=== PATIENT | male | born 1945 | race Caucasian/White ===

== ENCOUNTER 2016-03-22 09:21 | Outpatient (CLI) | payer MEDICARE, OTHER ==
[~2016-03-22 09:21] MED LIST: EMPA1TAB PO; EXEN2PEN SQ; FURO80TA3 PO; ICOS1CAP PO; INSU100V11 SQ; INSU3INS6 SQ; LIOT25TA9 PO; LISI-607 PO; NALT1TAB PO; PREG100C PO; SIMV40TA5 PO
== END 2016-03-22 23:59 | disposition home health service (06) ==
LOC: WOU 09:21
PROVIDERS: ATTEND Podiatrist Foot & Ankle Surgery
DX: E11.621 Type 2 diabetes mellitus with foot ulcer (principal); L97.512 Non-pressure chronic ulcer of other part of right foot with fat layer exposed; E11.42 Type 2 diabetes mellitus with diabetic polyneuropathy; E11.610 Type 2 diabetes mellitus with diabetic neuropathic arthropathy; Z91.19 Patient's noncompliance with other medical treatment and regimen; R60.0 Localized edema; Z79.4 Long term (current) use of insulin; Z79.899 Other long term (current) drug therapy
CPT/HCPCS: 15275; A6253; A6402; Q4110

== ENCOUNTER 2016-04-05 10:18 | Outpatient (CLI) | payer MEDICARE, OTHER | END 2016-04-05 23:59 | disposition home health service (06) | LOC: WOU 10:18 | PROVIDERS: ATTEND Podiatrist Foot & Ankle Surgery | DX: E11.621 Type 2 diabetes mellitus with foot ulcer (principal); L97.512 Non-pressure chronic ulcer of other part of right foot with fat layer exposed; E11.42 Type 2 diabetes mellitus with diabetic polyneuropathy; E11.610 Type 2 diabetes mellitus with diabetic neuropathic arthropathy; R60.0 Localized edema; Z79.4 Long term (current) use of insulin | CPT/HCPCS: 15275; A6253; A6402; Q4110 ==

== ENCOUNTER 2016-04-19 10:22 | Outpatient (CLI) | payer MEDICARE, OTHER | END 2016-04-19 23:59 | disposition home health service (06) | LOC: WOU 10:22 | PROVIDERS: ATTEND Podiatrist Foot & Ankle Surgery | DX: E11.621 Type 2 diabetes mellitus with foot ulcer (principal); L97.512 Non-pressure chronic ulcer of other part of right foot with fat layer exposed; E11.42 Type 2 diabetes mellitus with diabetic polyneuropathy; E11.610 Type 2 diabetes mellitus with diabetic neuropathic arthropathy; R60.0 Localized edema; Z79.4 Long term (current) use of insulin; Z79.899 Other long term (current) drug therapy | CPT/HCPCS: 15275; A6253; A6402; Q4110 ==

== ENCOUNTER 2016-05-03 10:20 | Outpatient (CLI) | payer MEDICARE, OTHER | END 2016-05-03 23:59 | disposition home health service (06) | LOC: WOU 10:20 | PROVIDERS: ATTEND Podiatrist Foot & Ankle Surgery | DX: E11.621 Type 2 diabetes mellitus with foot ulcer (principal); L97.512 Non-pressure chronic ulcer of other part of right foot with fat layer exposed; E11.42 Type 2 diabetes mellitus with diabetic polyneuropathy; E11.610 Type 2 diabetes mellitus with diabetic neuropathic arthropathy | CPT/HCPCS: 15275; A6253; A6402 ×2; Q4110 ==

== ENCOUNTER 2016-05-24 10:46 | Outpatient (CLI) | payer MEDICARE, OTHER | END 2016-05-24 23:59 | disposition home health service (06) | LOC: WOU 10:46 | PROVIDERS: ATTEND Podiatrist Foot & Ankle Surgery | DX: E11.621 Type 2 diabetes mellitus with foot ulcer (principal); L97.512 Non-pressure chronic ulcer of other part of right foot with fat layer exposed; E11.42 Type 2 diabetes mellitus with diabetic polyneuropathy; E11.610 Type 2 diabetes mellitus with diabetic neuropathic arthropathy; R60.0 Localized edema; E66.9 Obesity, unspecified; Z68.36 Body mass index [BMI] 36.0-36.9, adult; Z79.4 Long term (current) use of insulin; Z79.899 Other long term (current) drug therapy | CPT/HCPCS: 15275; A6253; A6402 ==

== ENCOUNTER 2016-05-28 13:10 | Outpatient (CLI) | payer MEDICARE, OTHER | END 2016-05-28 23:59 | disposition home health service (06) | LOC: WOU 13:10 | PROVIDERS: ATTEND Podiatrist Foot & Ankle Surgery | PROC: 0S9N3ZZ Drainage of Left Metatarsal-Phalangeal Joint, Percutaneous Approach (ICD-10-PCS; principal; 2016-05-28) | DX: M71.372 Other bursal cyst, left ankle and foot (principal); R60.0 Localized edema; E11.610 Type 2 diabetes mellitus with diabetic neuropathic arthropathy; E66.9 Obesity, unspecified; Z68.36 Body mass index [BMI] 36.0-36.9, adult; E11.42 Type 2 diabetes mellitus with diabetic polyneuropathy; Z79.4 Long term (current) use of insulin | CPT/HCPCS: 20600; A6402; J3490 ==

== ENCOUNTER 2016-06-07 10:26 | Outpatient (CLI) | payer MEDICARE, OTHER | END 2016-06-07 23:59 | disposition home health service (06) | LOC: WOU 10:26 | PROVIDERS: ATTEND Podiatrist Foot & Ankle Surgery | DX: E11.621 Type 2 diabetes mellitus with foot ulcer (principal); L97.512 Non-pressure chronic ulcer of other part of right foot with fat layer exposed; E11.42 Type 2 diabetes mellitus with diabetic polyneuropathy; E11.610 Type 2 diabetes mellitus with diabetic neuropathic arthropathy; E66.9 Obesity, unspecified; Z68.36 Body mass index [BMI] 36.0-36.9, adult; Z91.19 Patient's noncompliance with other medical treatment and regimen; R60.0 Localized edema; Z79.4 Long term (current) use of insulin | CPT/HCPCS: 15275; A6253; A6402; Q4110 ==

== ENCOUNTER 2016-06-21 10:25 | Outpatient (CLI) | payer MEDICARE, OTHER | END 2016-06-21 23:59 | disposition home health service (06) | LOC: WOU 10:25 | PROVIDERS: ATTEND Podiatrist Foot & Ankle Surgery | DX: E11.621 Type 2 diabetes mellitus with foot ulcer (principal); L97.512 Non-pressure chronic ulcer of other part of right foot with fat layer exposed; E11.42 Type 2 diabetes mellitus with diabetic polyneuropathy; R60.0 Localized edema; E11.610 Type 2 diabetes mellitus with diabetic neuropathic arthropathy; Z79.4 Long term (current) use of insulin | CPT/HCPCS: 15275; A6253; A6402; Q4131 ==

== ENCOUNTER 2016-08-04 10:51 | Emergency (ER) | payer MEDICARE, OTHER ==
[~2016-08-04] VITALS: Ht 180.3 cm; Wt 111.1 kg
--- NOTE | 2016-08-04 10:55 | NUR ---
PT SENT TO ED FOR PICC LINE PLACEMENT . AMBULATORY. ALERT ORIENTED. VSS. AWAITING MD ORDER
[2016-08-04] MEDS ORDERED: VANCOMYCIN 1 GM in IV D5W 250 ML IV ONE (11:30)
--- NOTE | 2016-08-04 11:38 | NUR ---
DARA VEE AT BEDSIDE FOR PICC LINE REINSERTION
--- NOTE | 2016-08-04 11:45 | NUR ---
CALLED PHARMACY FOR VANCOMYCIN
[2016-08-04] MEDS ORDERED: IV SET PRIMARY PUMP SET 1 EA INFUS.SET MC ONE (12:08)
[2016-08-04 12:54] VITALS: BP 122/75
--- NOTE | 2016-08-04 13:10 | NUR ---
Patient discharged to home in stable condition. Written and verbal after care instructions given. Patient verbalizes understanding of instruction.
== END 2016-08-04 13:20 | disposition home or self-care (01) ==
LOC: ER 10:54
DX: E11.621 Type 2 diabetes mellitus with foot ulcer (principal); E66.9 Obesity, unspecified; F41.9 Anxiety disorder, unspecified; I10 Essential (primary) hypertension; G62.9 Polyneuropathy, unspecified; F32.9 Major depressive disorder, single episode, unspecified; J44.9 Chronic obstructive pulmonary disease, unspecified; Z45.2 Encounter for adjustment and management of vascular access device; Z79.4 Long term (current) use of insulin
CPT/HCPCS: 36569; 96365; 99285; A4606; C1751; J3370; J7060; Z7610

== ENCOUNTER 2017-06-16 04:29 | Inpatient (IN) | payer MEDICARE, OTHER ==
[~2017-06-16] VITALS: Ht 177.8 cm; Wt 108.9 kg
--- NOTE | 2017-06-16 04:40 | NUR ---
TO BED 11 A 72 YO MALE PATIENT BIBRA 881 FROM HOME C/O LEFT LEG PAIN S/P FALLING OUT OF BED AT MIDNIGHT. DISTAL CMS INTACT. VSS. NAD NOTED. NONDIAPHORETIC. COMFORT MEASURES RENDERED.
--- NOTE | 2017-06-16 04:45 | NUR ---
XR AT BEDSIDE.
[2017-06-16] MEDS ORDERED: IBUPROFEN 400 MG TABLET PO ONE (05:00)
[2017-06-16] MEDS ORDERED: IBUPROFEN 400 MG TABLET ONE (05:04)
--- NOTE | 2017-06-16 05:43 | NUR ---
MS BED 225.2
--- NOTE | 2017-06-16 06:08 | NUR ---
PATIENT TO CT.
--- NOTE | 2017-06-16 06:26 | NUR ---
TRANSFERRED PATIENT TO MS BED, NO INCIDENT NOTED.
[2017-06-16 06:35] VITALS: BP 111/59
--- NOTE | 2017-06-16 06:35 | NUR ---
RN NOTES PATIENT BROUGHT INTO THE UNIT VIA RNEY, ACCOMPANIED BY ER STAFF. SAFELY TRANSFERRED PATIENT FROM [place]. PATIENT IS ALERT AND ORIENTED X 4, WITH NO SOB, BREATHING EVEN AND UNLABORED, IN NO ACUTE DISTRESS, WITH NO C/O PAIN AT THIS TIME. ORIENTED PT TO ROOM, UNIT, ADMISSION PROCESS, CALL LIGHT AND USE OF CALL LIGHT, PATIENT VERBALIZED UNDERSTANDING WITH FAMILY AT BEDSIDE. ALL PATIENT'S NEEDS ATTENDED TO AT THIS TIME. INITIAL VITAL SIGNS STABLE. STOCK ROLLER AT BEDSIDE FOR BLOOD DRAW OF AM LABS. WILL ENDORSE TO AM SHIFT NURSE FOR CONTINUITY OF CARE.
[2017-06-16 07:10] VITALS: BP 111/59
--- NOTE | 2017-06-16 07:15 | NUR ---
RN OPENING NOTES PATIENT IN BED EYES CLOSED, RESPONSIVE TO VERBAL AND TACTILE STIMULI. FAMILY AT BEDSIDE. NO ACUTE DISTRESS NOTED.BREATHING UNLABORED. IV ACCESS PATENT AND INTACT, NO REDNESS OR SWELLING NOTED. SAFETY MEASURES IN PLACE. CALL LIGHT WITHIN REACH. WILL CONTINUE TO MONITOR ACCORDINGLY.
[2017-06-16 07:21] LABS: BASOPHILS # (AUTO) 0.1 /CMM (0.0-0.2); BASOPHILS % (AUTO) 0.5 % (0.0-2.0); EOSINOPHILS % (AUTO) 0.1 % (0.0-6.0); HEMATOCRIT 48 % (39-51); HEMOGLOBIN 15.8 g/dL (13.5-17.5); LYMPHOCYTES # (AUTO) 1.5 /CMM (0.8-4.8); LYMPHOCYTES % (AUTO) 8.1 % (20.0-44.0); MEAN CORPUSCULAR HGB CONC 33 g/dl (31.0-36.0); MEAN CORPUSCULAR VOLUME 81 fL (80-96); MONOCYTES # (AUTO) 2.2 /CMM (0.1-1.30); MONOCYTES % (AUTO) 11.5 % (2.0-12.0); NEUTROPHILS # (AUTO) 14.9 /CMM (1.8-8.9); NEUTROPHILS % (AUTO) 79.8 % (43.0-81.0); PLATELET COUNT (AUTO) 193 /CMM (150-450); RDW COEFFICIENT OF VARIATION 16.9 (11.5-15.0); RED BLOOD CELL COUNT(AUTO) 5.97 MIL/uL (4.5-6.0); WHITE BLOOD COUNT (AUTO) 18.7 K/uL (4.3-11.0)
[2017-06-16 07:39] LABS: CREATININE 1.9 mg/dL (0.6-1.3)
[2017-06-16 07:41] LABS: INR 1.16 (0.87-1.13)
[2017-06-16] MEDS ORDERED: ONDANSETRON HCL/PF 4 MG/2 ML VIAL IVP PRN (10:00)
[2017-06-16] MEDS ORDERED: MORPHINE SULFATE INJ 2 MG/ML DISP.SYRIN IV PRN (10:00)
[2017-06-16] MEDS ORDERED: Z GUARD REMEDY 2 OZ OINT TP PRN (10:00)
[2017-06-16] MEDS: PREGABALIN 100 MG CAPSULE PO SCH ×2 (12:40→16:51)
--- NOTE | 2017-06-16 17:00 | NUR ---
RN NOTES PATIENT REFUSED ECHO DONE DESPITE OF EXPLANATION OF RISK AND BENEFITS. DR BURNETT MADE AWARE.
[2017-06-16] MEDS ORDERED: *INSULIN REGULAR(HUMULIN R)HUM 100 UNIT/ML VIAL SQ PRN (18:00)
[2017-06-16] MEDS ORDERED: BLOOD SUGAR DIAGNOSTIC 1 EACH STRIP VI SCH (18:00)
[2017-06-16] MEDS ORDERED: MORPHINE SULFATE INJ 4 MG/ML DISP.SYRIN IV PRN (18:00)
[2017-06-16] MEDS ORDERED: PIPERACILLIN /TAZOBACTAM 3.375 G in IV D5W 100 ML IV SCH (18:00)
[2017-06-16] MEDS ORDERED: INSULIN REGULAR, HUMAN 100 UNIT/ML 3 ML VIAL SQ PRN (18:00)
[2017-06-16] MEDS ORDERED: hydrALAZINE HCL 25 MG TABLET PO PRN (18:00)
[2017-06-16] MEDS ORDERED: DEXTROSE 50%-WATER 50 ML DISP.SYRIN IV PRN ×2 (18:00→21:00)
[2017-06-16] MEDS ORDERED: FEE PK DOSING 1 MIN EA MC ONE (18:08)
[2017-06-16] MEDS: PIPERACILLIN /TAZOBACTAM 3.375 G in IV D5W 100 ML IV SCH (18:30)
[2017-06-16] MEDS ORDERED: INSULIN GLARGINE, 100 UNIT/ML CARTRIDGE SQ ONE ×2 (18:30→21:00)
--- NOTE | 2017-06-16 18:30 | NUR ---
RN NOTES NOTED BLOOD SUGAR [address] BURNETT WITH ORDERS TO GIVE REGULAR INSULIN COVERAGE AND LANTUS 15 UNITS NOW AND CHANGE ACCU CHECK EVERY 4 HOUR. CLARIFIED LANTUS DUE @ BEDTIME TONIGHT SAID TO CUT LANTUS DOWN TO 12 UNITS.PATIENT ASYMPTOMIC. NOTED AND CARRIED OUT. PATIENT REFUSED ZOSYN DESPITE OF EXPLANATION OF RISK AND BENEFITS AND PATIENT STATED " I DON'T CARE ABOUT MY INFECTION" PATIENT GETS UPSET AND REFUSED TO TALK ABOUT THAT. MD NOTIFIED.
--- NOTE | 2017-06-16 19:10 | NUR ---
RN NOTED RECHECKED BLOOD SUGAR NOTED WITH IMPROVEMENT , DECREASING . ENDORSED TO NIGHT NURSE FOR CONTINUITY OF CARE. NO ACUTE DISTRESS NOTED. PATIENT ALERT ORIENTED X4. SAFETY MEASURES IN PLACE. CALL LIGHT WITHIN REACH. DUE MEDICATIONS GIVEN, NO ASE NOTED.
--- NOTE | 2017-06-16 19:30 | NUR ---
RN OPENING MS NOTES RECEIVED PATIENT IN BED, AWAKE, ALERT AND ORIENTED X 4, VERBALLY RESPONSIVE, NO SOB, VERBALIZED PAIN LEVEL OF 8/10, ALL NEEDS ATTENDED TO AT THIS TIME, PLACED BED IN LOW POSITION AND LOCKED IN PLACE, CALL LIGHT WITHIN EASY REACH. KEPT PATIENT SAFE AND DRY, CLEAN AND COMFORTABLE. WILL CONTINUE TO MONITOR PATIENT THROUGHOUT THE SHIFT.
[2017-06-16] MEDS ORDERED: VANCOMYCIN 1.25 GM in IV D5W 500 ML IV SCH (20:00)
--- NOTE | 2017-06-16 20:50 | NUR ---
RN NOTE RECEIVED NEW ORDER FROM DR. BURNETT TO D/C PREVIOUS SSI COVERAGE ORDERS AND TO FOLLOW Q4 PRN SSI COVERAGE MODERATE SCALE TOGETHER WITH ACCUCHECK Q4H. ALL ORDERS NOTED AND CARRIED OUT.
[2017-06-16] MEDS ORDERED: BLOOD SUGAR DIAGNOSTIC 1 EACH STRIP IN SCH (21:00)
[2017-06-16] MEDS ORDERED: INSULIN GLARGINE, 100 UNIT/ML CARTRIDGE SQ SCH (21:00)
[2017-06-16] MEDS: INSULIN REGULAR, HUMAN 100 UNIT/ML 3 ML VIAL SQ PRN (21:09)
[2017-06-16] MEDS: BLOOD SUGAR DIAGNOSTIC 1 EACH STRIP VI SCH (21:09)
[2017-06-16] MEDS: SIMVASTATIN 40 MG TABLET PO SCH (21:16)
[2017-06-16] MEDS: HYDROCODONE/APAP 5/325MG 1 EACH TABLET PO PRN (21:51)
[2017-06-16 22:09] LABS: APPEARANCE,URINE CLEAR (CLEAR); BILIRUBIN,URINE NEGATIVE (NEGATIVE); BLOOD, URINE 2+ Ery/uL (NEGATIVE); COLOR,URINE YELLOW (YELLOW); KETONES,URINE NEGATIVE (NEGATIVE); LEUKOCYTE ESTERASE ,URINE NEGATIVE (NEGATIVE); NITRITE, URINE NEGATIVE (NEGATIVE); PH,URINE 6.5 (5.0-8.0); PROTEIN,URINE 1+ mg/dl (NEGATIVE); UGLUCOSE 3+ mg/dL (NEGATIVE); UROBILINOGEN,URINE 0.2 EU/dL (0.2)
[2017-06-16 22:21] LABS: BACTERIA,URINE 1+ /HPF (None Seen); SQUAMOUS EPITHELIAL CELL,UR 0-2 /HPF (None Seen); WBC,URINE 0-2 /HPF (0-3)
[2017-06-16 23:15] LABS: EOSINOPHIL,URINE None Seen
[2017-06-17] MEDS: PIPERACILLIN /TAZOBACTAM 3.375 G in IV D5W 100 ML IV SCH ×5 (00:04→23:24)
[2017-06-17] MEDS: INSULIN REGULAR, HUMAN 100 UNIT/ML 3 ML VIAL SQ PRN ×3 (00:17→09:15)
[2017-06-17] MEDS: BLOOD SUGAR DIAGNOSTIC 1 EACH STRIP VI SCH ×3 (00:18→09:10)
--- NOTE | 2017-06-17 01:30 | NUR ---
RN NOTE PATIENT NOTED TO HAVE TEMP 99.2 F, ACETAMINOPHEN 650 MG PO ADMINISTERED ORDERED, COOLING MEASURES APPLIED. PT ALERT AND ORIENTED AND VERBALLY RESPONSIVE, NO C/O PAIN AND IN NO ACUTE DISTRESS. WILL CONTINUE TO MONITOR PT.
[2017-06-17] MEDS: ACETAMINOPHEN 325 MG TABLET PO PRN (01:32)
--- NOTE | 2017-06-17 03:30 | NUR ---
RN NOTE GAVE REPORT TO TAJ LUJAN FOR TRANSFER OF PATIENT'S CARE. PATIENT IN BED, ASLEEP BUT EASILY AROUSABLE AND IN NO ACUTE DISTRESS.
[2017-06-17] MEDS: HYDROCODONE/APAP 5/325MG 1 EACH TABLET PO PRN ×3 (04:20→17:00)
[2017-06-17 07:20] LABS: BASOPHILS # (AUTO) 0.1 /CMM (0.0-0.2); BASOPHILS % (AUTO) 0.5 % (0.0-2.0); EOSINOPHILS % (AUTO) 0.2 % (0.0-6.0); HEMATOCRIT 49 % (39-51); HEMOGLOBIN 16.2 g/dL (13.5-17.5); LYMPHOCYTES # (AUTO) 1.4 /CMM (0.8-4.8); LYMPHOCYTES % (AUTO) 8.7 % (20.0-44.0); MEAN CORPUSCULAR HGB CONC 33 g/dl (31.0-36.0); MEAN CORPUSCULAR VOLUME 80 fL (80-96); MONOCYTES # (AUTO) 1.1 /CMM (0.1-1.30); MONOCYTES % (AUTO) 6.8 % (2.0-12.0); NEUTROPHILS # (AUTO) 13.8 /CMM (1.8-8.9); NEUTROPHILS % (AUTO) 83.8 % (43.0-81.0); PLATELET COUNT (AUTO) 177 /CMM (150-450); RDW COEFFICIENT OF VARIATION 16.8 (11.5-15.0); RED BLOOD CELL COUNT(AUTO) 6.09 MIL/uL (4.5-6.0); WHITE BLOOD COUNT (AUTO) 16.4 K/uL (4.3-11.0)
[2017-06-17 07:51] LABS: ALBUMIN 2.9 g/dL (3.4-5.0); BILIRUBIN,TOTAL 1.6 mg/dL (0.2-1.0); CALCIUM, SERUM 9.2 mg/dL (8.5-10.1); CREATININE 2.2 mg/dL (0.6-1.3); MAGNESIUM 2.1 mg/dL (1.8-2.4); PHOSPHORUS 3.1 mg/dL (2.5-4.9); POTASSIUM 4.3 mmol/L (3.5-5.1); TOTAL PROTEIN, SERUM 7.9 g/dL (6.4-8.2)
[2017-06-17 07:54] LABS: THYROID STIMULATING HORMONE 1.364 uIU/mL (0.358-3.74)
--- NOTE | 2017-06-17 07:58 | NUR ---
NO SIGNIFICANT CHANGE NOTED, PATIENT STABLE, ALL DUE MEDS GIVEN ORDERED. ENDORSED TO THE NEXT SHIFT TO CONTINUE TO MONITOR
[2017-06-17 08:00] VITALS: BP 125/62
[2017-06-17] MEDS: FUROSEMIDE 80 MG TABLET PO SCH (08:37)
[2017-06-17] MEDS: LIOTHYRONINE SODIUM (25 MCG) 25 MCG TABLET PO SCH (08:37)
[2017-06-17] MEDS: PREGABALIN 100 MG CAPSULE PO SCH ×3 (08:37→17:00)
[2017-06-17 08:46] LABS: CREATINE KINASE MB 1.7 ng/mL (0-3.6)
[2017-06-17] MEDS: INSULIN GLARGINE, 100 UNIT/ML CARTRIDGE SQ SCH ×2 (09:00→21:40)
[2017-06-17] MEDS ORDERED: LISINOPRIL (5MG) 5 MG TABLET PO SCH (09:00)
--- NOTE | 2017-06-17 09:15 | NUR ---
m/s director diabetes: notes blood sugar oezrs=[id number]. pt refused lantus, stated, "i don't want that, i just want my novolog." informed pt that he is on regular insulin with coverage and per coverage 3 units has to be given per coverage, stated, "i need more, i already told them, how many times do i have to tell them, i will call someone to bring my own staff here, i already discuss this to the doctor, it's always malpractice." pt continue to be verbally abusive despite educated on insulin use and policy. 1:1 intervention provided prn.
--- NOTE | 2017-06-17 09:45 | NUR ---
m/s graphic design manager: notes pt wants to walk to the bathroom, refused bsc when offered. educated pt on safety, but insisted of walking to the bathroom. pt more verbally abusive staff when educated provided, stated, "i need a orthopedic to see me as soon as possible." pt unable to walk, but able to stand up, provided wheelchair with 2 person assistance. pt just voided, unable to move his bowel at this time. assisted back to bed, repositioned. informed pt to use urinal for #1. pt insisted on seeing the orthopedic. informed pt that a plumbing installer will be seeing him, but pt refused to listen and insisted on seeing the orthopedic. per dr. castillo (ortho), no need to see him per cn and pt made aware, but still insisted on seeing the orthopedic. informed pt that a primary medical doctor will be here to explain more and update his plan of care today.
[2017-06-17 10:04] LABS: BAND % (MANUAL) 2 % (0.0-5.0); LYMPHOCYTES % (MANUAL) 12 % (16-48); MONOCYTES % (MANUAL) 2 % (0-11.0); NEUTROPHILS % (MANUAL) 84 (42-76)
[2017-06-17] MEDS ORDERED: HYDROCODONE/APAP 5/325MG 1 EACH TABLET PO ONE (11:00)
--- NOTE | 2017-06-17 11:08 | NUR ---
m/s art therapy certified supervisor: md visit seen and examined by dr. ortiz with orders also with verbal order to change his norco to two tabs q 4 hrs prn and may give one tab now, also change his regular insulin to novolog ac and hs. orders read back and carried out and acknowledged. pt made aware of changes, but he doesn't remember his sliding scale at home, but aware that he is on sliding scale here per order. awaiting for still cleaner consult.
[2017-06-17] MEDS ORDERED: DEXTROSE 50%-WATER 50 ML DISP.SYRIN IV PRN (11:30)
--- NOTE | 2017-06-17 11:55 | NUR ---
m/s induction machine setter: plastic surgeon seen by dr. lopez, consent obtained from pt re: debridement of chest wound and bedside debridement of chest wound done, tol. randall. tx done by
[2017-06-17] MEDS: BLOOD SUGAR DIAGNOSTIC 1 EACH STRIP IN SCH ×3 (12:28→21:42)
--- NOTE | 2017-06-17 13:00 | NUR ---
m/s dinkey locomotive operator: notes pt called and wants to get up to the bathroom. pt is max assist and unable to walk and pt has dx: left calcaneal fx with right foot sole wound. educated pt on condition, but still refuses and cursing with staff. offered bsc and bedpan, but pt refused. pt did use the urinal to void, but had an accident. complete bed change done by staff. 1:1 intervention provided prn. instructed to call for assistance. will continue to monitor.
[2017-06-17] MEDS: INSULIN ASPART/LISPRO 100 UNIT/ML CARTRIDGE SQ PRN ×3 (13:30→21:40)
[2017-06-17 16:00] VITALS: BP 127/55
--- NOTE | 2017-06-17 16:00 | NUR ---
m/s eligibility services representative: notes son visiting at this time. pt calm at this time. call light within reach.
[2017-06-17] MEDS: LACTOBACILLUS RHAMNOSUS GG 1 EACH CAP.SPRINK PO SCH (16:59)
--- NOTE | 2017-06-17 17:30 | NUR ---
m/s drum attendant: notes dr. mcclain (compensation and benefits analyst) and will see the pt. pt and son made aware.
--- NOTE | 2017-06-17 17:50 | NUR ---
m/s supervisor commissary production: dental laboratory technology teacher consult seen and examined by dr. mcclain with order to obtain consent of right foot excisional wound debridement. consent obtained from pt and md made aware. son remains at bedside.
--- NOTE | 2017-06-17 18:30 | NUR ---
m/s attending ambulatory care: notes right foot excisional wound debridement done at bedside, ervin. well. dressing done by md. instructed pt and son re: non weight bearing on sergio lower ext's by md, verbalized understanding. needs attended. will continue to monitor.
--- NOTE | 2017-06-17 19:35 | NUR ---
MS RN NOTES PT IS IN BED SLEEPING, EASILY AROUSED. ABLE TO MAKE NEEDS KNOWN. NO SIGNS OF SOB OR DISTRESS, BREATHING EVENLY AND UNLABORED ON RA. S/P WOUND DEBRIDEMENT ON CHEST AND LEFT FOOT. NO SIGNS OF BLEEDING OR LEAKAGE. IV ACCESS IS INTACT AND PATENT. BED IS IN LOW AND LOCKED POSITION, CALL LIGHT WITHIN REACH. WILL CONTINUE TO MONITOR PT
[2017-06-17 20:00] VITALS: BP 108/59
[2017-06-17] MEDS ORDERED: VANCOMYCIN 1.25 GM in IV D5W 500 ML IV SCH (20:00)
--- NOTE | 2017-06-17 21:40 | NUR ---
MS RN NOTE PT URINATED ON THE FLOOR, GETTING VERBALLY ABUSIVE WITH STAFF. OFFERED PT A DIAPER, PT REFUSED. REORIENTED PT TO URINAL AND CALL LIGHT. WILL CONTINUE TO MONITOR PT
[2017-06-17] MEDS: SIMVASTATIN 40 MG TABLET PO SCH (21:45)
[2017-06-18 00:23] LABS: APPEARANCE,URINE CLEAR (CLEAR); BILIRUBIN,URINE NEGATIVE (NEGATIVE); BLOOD, URINE 2+ Ery/uL (NEGATIVE); COLOR,URINE YELLOW (YELLOW); KETONES,URINE NEGATIVE (NEGATIVE); LEUKOCYTE ESTERASE ,URINE NEGATIVE (NEGATIVE); NITRITE, URINE NEGATIVE (NEGATIVE); PH,URINE 5.5 (5.0-8.0); PROTEIN,URINE 1+ mg/dl (NEGATIVE); UGLUCOSE 3+ mg/dL (NEGATIVE); UROBILINOGEN,URINE 0.2 EU/dL (0.2)
[2017-06-18 00:29] LABS: URINE TOTAL PROTEIN 82.6 mg/dL (0-11.9)
[2017-06-18 00:33] LABS: BACTERIA,URINE Few /HPF (None Seen); SQUAMOUS EPITHELIAL CELL,UR Few /HPF (None Seen); URINE AMORPHOUS URATE Few /HPF (None Seen); WBC,URINE 0-2 /HPF (0-3)
[2017-06-18 01:37] LABS: EOSINOPHIL,URINE None Seen
--- NOTE | 2017-06-18 05:00 | NUR ---
MS RN NOTE PT IS WET IN BED, REFUSING TO BE CHANGED. PT STATED THAT WE SHOULD TRY AGAIN LATER. WILL TRY AGAIN LATER
[2017-06-18] MEDS: PIPERACILLIN /TAZOBACTAM 3.375 G in IV D5W 100 ML IV SCH ×4 (05:49→23:28)
[2017-06-18] MEDS: BLOOD SUGAR DIAGNOSTIC 1 EACH STRIP IN SCH ×4 (05:55→21:38)
[2017-06-18] MEDS: INSULIN ASPART/LISPRO 100 UNIT/ML CARTRIDGE SQ PRN ×4 (05:58→21:47)
--- NOTE | 2017-06-18 06:29 | NUR ---
MS RN CLOSING NOTE PT IS IN BED SLEEPING, EASILY AROUSED. NO SIGNS OF SOB OR DISTRESS. BREATHING EVENLY AND UNLABORED ON RA. IV ACCESS IS INTACT AND PATENT. WOUND DRESSING IS INTACT AND PATENT, NO SIGNS OF DRAINAGE. NO ACUTE CHANGES THROUGHOUT THE SHIFT. ALL NEEDS WERE ANTICIPATED AND MET. BED IS IN LOW AND LOCKED POSITION, CALL LIGHT WITHIN REACH. WILL ENDORSE TO DAYSHIFT
--- NOTE | 2017-06-18 06:30 | NUR ---
MS RN NOTE PT CONTINUES TO REFUSE BEING CHANGES DESPITE MULTIPLE ATTEMPTS. EDUCATION WAS GIVEN, PT STILL REFUSED. WILL ENDORSE TO DAYSHIFT
[2017-06-18 07:06] LABS: BASOPHILS % (AUTO) 0.3 % (0.0-2.0); EOSINOPHILS % (AUTO) 0.2 % (0.0-6.0); HEMATOCRIT 46 % (39-51); HEMOGLOBIN 15.5 g/dL (13.5-17.5); LYMPHOCYTES # (AUTO) 0.9 /CMM (0.8-4.8); LYMPHOCYTES % (AUTO) 6.5 % (20.0-44.0); MEAN CORPUSCULAR HGB CONC 34 g/dl (31.0-36.0); MEAN CORPUSCULAR VOLUME 80 fL (80-96); MONOCYTES # (AUTO) 1.1 /CMM (0.1-1.30); MONOCYTES % (AUTO) 7.6 % (2.0-12.0); NEUTROPHILS % (AUTO) 85.4 % (43.0-81.0); PLATELET COUNT (AUTO) 171 /CMM (150-450); RDW COEFFICIENT OF VARIATION 17.5 (11.5-15.0); RED BLOOD CELL COUNT(AUTO) 5.75 MIL/uL (4.5-6.0)
[2017-06-18 07:48] LABS: CALCIUM, SERUM 9.4 mg/dL (8.5-10.1); CREATININE 2.3 mg/dL (0.6-1.3); PHOSPHORUS 3.2 mg/dL (2.5-4.9); POTASSIUM 4.1 mmol/L (3.5-5.1)
[2017-06-18 08:00] VITALS: BP 125/65
--- NOTE | 2017-06-18 08:00 | NUR ---
m/s crepe box tender: initial assessment received pt in bed awake, a/ox3. pt still refuses to be change. bed linens remains soiled with urine. refused am care when offered. pt easily irritated when educated provided. instructed to call for assistance. will continue to monitor.
[2017-06-18] MEDS: PREGABALIN 100 MG CAPSULE PO SCH ×3 (08:49→17:35)
[2017-06-18] MEDS: LACTOBACILLUS RHAMNOSUS GG 1 EACH CAP.SPRINK PO SCH ×2 (08:49→17:35)
[2017-06-18] MEDS: LIOTHYRONINE SODIUM (25 MCG) 25 MCG TABLET PO SCH (08:49)
[2017-06-18] MEDS: FUROSEMIDE 80 MG TABLET PO SCH (08:49)
[2017-06-18] MEDS: INSULIN GLARGINE, 100 UNIT/ML CARTRIDGE SQ SCH ×3 (08:50→21:46)
--- NOTE | 2017-06-18 09:00 | NUR ---
m/s diversified crops farmer: notes bs gzaid=[id number], pt insisting on novalog insulin. informed pt he has lantus due. lantus 30units given as ordered. pt still refuses care. will continue to monitor.
--- NOTE | 2017-06-18 09:58 | NUR ---
WOUND CARE CONSULT WOUND CARE RECEIVED CONSULT FOR WOUND ON MENDEZ FOOT. WOUND CARE WILL DEFER CONSULT AND ALL TREATMENT PLANS TO SURGICAL TEAM THEY ARE CURRENTLY FOLLOWING. PATIENT WITH ZAIDA AT 14. ALL PRESSURE ULCER PREVENTION MEASURES NOTED TO BE IN PLACE AT THIS TIME.
--- NOTE | 2017-06-18 10:30 | NUR ---
m/s fountain pen nibs inspector: notes offered once more for am care, pt agreed to change bed linens. complete bed linens changed by staff. friend visiting at this time. instructed to call for assistance. will continue to monitor.
--- NOTE | 2017-06-18 10:52 | NUR ---
m/s semiconductor packages platemaker: md visit seen and examined by ellis (acnp) with orders. orders acknowledged.
[2017-06-18] MEDS: HYDROCODONE/APAP 5/325MG 1 EACH TABLET PO PRN (10:57)
--- NOTE | 2017-06-18 10:57 | NUR ---
m/s dentofacial orthopedics dentist: notes c/o unable to scale pain to left foot. medicated with norco 2 tabs po as ordered. instructed to call for assistance.
[2017-06-18 14:14] LABS: *SPE A/G RATIO 0.8 (0.7-1.7); *SPE ALPHA-1-GLOBULIN 0.4 g/dL (0.0-0.4); *SPE BETA GLOBULIN 0.9 g/dL (0.7-1.3); *SPE GLOBULIN, TOTAL 3.6 g/dL (2.2-3.9); *SPE M-SPIKE Not Observed g/dL (Not Observed); *SPEGAMMA GLOBULIN 1.2 g/dL (0.4-1.8)
[2017-06-18 14:17] LABS: PTH, INTACT 17 pg/mL (15-65)
[2017-06-18] MEDS ORDERED: IV NS 0.9% 1,000 ML IV ONE (15:00)
[2017-06-18 16:00] VITALS: BP 131/69
[2017-06-18] MEDS ORDERED: BACITRACIN ZINC OINT PACKET 1 EA PACKET TP SCH (19:00)
--- NOTE | 2017-06-18 19:40 | NUR ---
MS RN NOTES PT IS IN BED SLEEPING, EASILY AROUSED. ABLE TO MAKE NEEDS KNOWN. NO SIGNS OF SOB OR DISTRESS, BREATHING EVENLY AND UNLABORED ON RA. IV ACCESS IS INTACT AND PATENT WITH FLUIDS INFUSING. BED IS IN LOW AND LOCKED POSITION, CALL LIGHT WITHIN REACH. WILL CONTINUE TO MONITOR PT
[2017-06-18 19:54] VITALS: BP 132/63
[2017-06-18 20:00] VITALS: BP 132/63
[2017-06-18] MEDS ORDERED: VANCOMYCIN 1.25 GM in IV NS 0.9% 500 ML IV SCH (21:00)
[2017-06-18] MEDS: SIMVASTATIN 40 MG TABLET PO SCH (21:42)
[2017-06-19] MEDS: BLOOD SUGAR DIAGNOSTIC 1 EACH STRIP IN SCH ×5 (05:59→21:53)
[2017-06-19] MEDS: PIPERACILLIN /TAZOBACTAM 3.375 G in IV D5W 100 ML IV SCH ×2 (05:59→12:17)
[2017-06-19] MEDS: INSULIN ASPART/LISPRO 100 UNIT/ML CARTRIDGE SQ PRN ×4 (06:08→21:37)
--- NOTE | 2017-06-19 07:45 | NUR ---
MS RN OPENING NOTES RECEIVED PATIENT IN BED, AWAKE ALERT, VERBALLY RESPONSIVE, RESPIRATIONS EVEN AND UNLABORED, NO COMPLAINTS OF PAIN OR DISCOMFORT AT THIS TIME, IV TO LEFT FOREARM 20 GAUGE, IVF RUNNING AT 75ML/HR, NO REDNESS ,NO INFILTRATION TO SITE NOTED.SAFETY MEASURES IN PLACE, CALL LIGHT KEPT WITHIN REACH.WILL CONTINUE TO MONITOR.
[2017-06-19 08:00] VITALS: BP 123/61
[2017-06-19 08:10] LABS: BASOPHILS # (AUTO) 0.1 /CMM (0.0-0.2); BASOPHILS % (AUTO) 0.5 % (0.0-2.0); EOSINOPHILS % (AUTO) 1.5 % (0.0-6.0); HEMATOCRIT 44 % (39-51); HEMOGLOBIN 14.6 g/dL (13.5-17.5); LYMPHOCYTES # (AUTO) 1.2 /CMM (0.8-4.8); LYMPHOCYTES % (AUTO) 8.6 % (20.0-44.0); MEAN CORPUSCULAR HGB CONC 34 g/dl (31.0-36.0); MEAN CORPUSCULAR VOLUME 80 fL (80-96); MONOCYTES # (AUTO) 1.4 /CMM (0.1-1.30); MONOCYTES % (AUTO) 10.1 % (2.0-12.0); NEUTROPHILS # (AUTO) 11.2 /CMM (1.8-8.9); NEUTROPHILS % (AUTO) 79.3 % (43.0-81.0); PLATELET COUNT (AUTO) 180 /CMM (150-450); RDW COEFFICIENT OF VARIATION 17.1 (11.5-15.0); RED BLOOD CELL COUNT(AUTO) 5.42 MIL/uL (4.5-6.0); WHITE BLOOD COUNT (AUTO) 14.1 K/uL (4.3-11.0)
[2017-06-19 08:33] LABS: CALCIUM, SERUM 9.1 mg/dL (8.5-10.1); CREATININE 2.1 mg/dL (0.6-1.3); PHOSPHORUS 3.1 mg/dL (2.5-4.9); POTASSIUM 3.2 mmol/L (3.5-5.1)
[2017-06-19] MEDS: PREGABALIN 100 MG CAPSULE PO SCH ×3 (08:42→17:32)
[2017-06-19] MEDS: LIOTHYRONINE SODIUM (25 MCG) 25 MCG TABLET PO SCH (08:42)
[2017-06-19] MEDS: LACTOBACILLUS RHAMNOSUS GG 1 EACH CAP.SPRINK PO SCH ×2 (08:42→17:32)
[2017-06-19] MEDS: INSULIN GLARGINE, 100 UNIT/ML CARTRIDGE SQ SCH ×2 (08:44→21:38)
[2017-06-19 10:16] LABS: CALCITRIOL VIT D,1, 25 DIHYDRO 15.9 pg/mL (19.9-79.3)
[2017-06-19] MEDS ORDERED: POTASSIUM CHLORIDE 20 MEQ TAB.PRT.SR PO ONE (11:00)
--- NOTE | 2017-06-19 14:17 | NUR ---
RN MS NOTES CALLED AND SPOKED TO [facility]ARE CENTER TO CLARIFY WEIGHT BEARING STATUS OF PATIENT, STAFF WILL SEND MESSAGE TO .
--- NOTE | 2017-06-19 15:30 | NUR ---
RN MS NOTES RIGHT PLANTAR FOOT WOUND DRESSING CHANGE SITE CLEANSED AND COVERED WITH MEPILEX AND LIGHTLY WRAPPED WITH KERLIX WOUND BED NOTED PINK , DRESSING DRY AND INTACT. NO COMPLAINTS OF PAIN DURING TREATMENT. NOTIFIED MD WILL CONTINUE TO MONITOR
--- NOTE | 2017-06-19 15:31 | NUR ---
RN MS NOTES SPOKE TO MD TAMICA HERNANDEZ REGARDING INSULIN DOSE CHANGE, NO NEW ORDERS AT THIS TIME.
--- NOTE | 2017-06-19 15:56 | NUR ---
RN MS NOTES SPOKE TO DANIELLE MENDOZA REGARDING ORDERS, AND CAST PLACEMENT, PER MD KEL DRAPER PA TO FOLLOW UP.
[2017-06-19 16:00] VITALS: BP_SYST 129; BP_SYST 133; BP_DIAS 77; BP_DIAS 83
[2017-06-19] MEDS ORDERED: NAFCILLIN 2 G in IV D5W 50 ML IV SCH (18:00)
--- NOTE | 2017-06-19 19:10 | NUR ---
MS RN CLOSING NOTES PATIENT IN BED, AWAKE ALERT, VERBALLY RESPONSIVE, RESPIRATIONS EVEN AND UNLABORED, NO COMPLAINTS OF PAIN OR DISCOMFORT AT THIS TIME, IV TO LEFT FOREARM 20 GAUGE, NO REDNESS ,NO INFILTRATION TO SITE NOTED.SAFETY MEASURES IN PLACE, CALL LIGHT KEPT WITHIN REACH.WILL CONTINUE TO MONITOR.
--- NOTE | 2017-06-19 19:30 | NUR ---
RN NOTES RECEIVED PATIENT IN BED AWAKE, OA X 3, ABLE TO MAKE NEEDS KNOWN. NO ACUTE DISTRESS NOTED. DENIES ANY PAIN AT THIS TIME. NO SYMPTOMS OF HYPER/HYPOGLYCEMIA. IV SITE PATENT, INTACT; FLUSHED. SAFETY REMINDERS GIVEN. ON LOW BED WITH BILATERAL UPPER SIDE RAILS UP. CALL EUCEDA WITHIN EASY REACH. WILL CONTINUE TO MONITOR.
[2017-06-19 20:00] VITALS: BP 127/61
[2017-06-19 20:27] VITALS: BP 127/61
[2017-06-19] MEDS: CEFTRIAXONE 1 G in IV NS 0.9% 50 ML IV SCH (21:31)
[2017-06-19] MEDS: SIMVASTATIN 40 MG TABLET PO SCH (21:40)
--- NOTE | 2017-06-19 21:53 | NUR ---
RN NOTES ACCUCHECK DONE AT 5; BG 293
[2017-06-19] MEDS ORDERED: DEXTROSE 50%-WATER 50 ML DISP.SYRIN IV PRN (22:00)
--- NOTE | 2017-06-20 06:30 | NUR ---
RN NOTES PATIENT ASLEEP, EASILY AROUSABLE. RESPIRATIONS EVEN. NO SIGNS OF PAIN NOTED. DUE MEDS GIVEN WITH NO ASE NOTED. NEEDS ATTENDED. SAFETY PRECAUTIONS AND COMFORT MEASURES IN PLACE. WILL GIVE REPORT TO DAY SHIFT FOR CONTINUITY OF CARE.
[2017-06-20] MEDS: INSULIN REGULAR, HUMAN 100 UNIT/ML 3 ML VIAL SQ PRN ×3 (06:41→17:49)
[2017-06-20] MEDS: BLOOD SUGAR DIAGNOSTIC 1 EACH STRIP IN SCH ×4 (06:41→21:12)
[2017-06-20 08:00] VITALS: BP 128/71
[2017-06-20] MEDS: LACTOBACILLUS RHAMNOSUS GG 1 EACH CAP.SPRINK PO SCH ×2 (08:24→17:04)
[2017-06-20] MEDS: LIOTHYRONINE SODIUM (25 MCG) 25 MCG TABLET PO SCH (08:24)
[2017-06-20] MEDS: PREGABALIN 100 MG CAPSULE PO SCH ×3 (08:24→17:04)
[2017-06-20] MEDS: BACITRACIN ZINC OINT (15 GM) 15 GM TUBE TP SCH (08:31)
[2017-06-20] MEDS: DAKINS HALF STRENGTH (0.25%) 480 ML BOTTLE TOP SCH (08:31)
[2017-06-20] MEDS: INSULIN GLARGINE, 100 UNIT/ML CARTRIDGE SQ SCH ×3 (08:34→21:22)
[2017-06-20 08:42] LABS: EOSINOPHILS % (AUTO) 1.7 % (0.0-6.0); HEMATOCRIT 44 % (39-51); HEMOGLOBIN 14.9 g/dL (13.5-17.5); LYMPHOCYTES # (AUTO) 1.3 /CMM (0.8-4.8); LYMPHOCYTES % (AUTO) 8.9 % (20.0-44.0); MEAN CORPUSCULAR HGB CONC 34 g/dl (31.0-36.0); MEAN CORPUSCULAR VOLUME 80 fL (80-96); MONOCYTES # (AUTO) 1.8 /CMM (0.1-1.30); MONOCYTES % (AUTO) 12.2 % (2.0-12.0); NEUTROPHILS # (AUTO) 11.6 /CMM (1.8-8.9); NEUTROPHILS % (AUTO) 77.2 % (43.0-81.0); PLATELET COUNT (AUTO) 194 /CMM (150-450); RDW COEFFICIENT OF VARIATION 17.4 (11.5-15.0); WHITE BLOOD COUNT (AUTO) 15.1 K/uL (4.3-11.0)
[2017-06-20 08:44] LABS: CALCIUM, SERUM 9.5 mg/dL (8.5-10.1); CREATININE 1.9 mg/dL (0.6-1.3); MAGNESIUM 2.2 mg/dL (1.8-2.4); PHOSPHORUS 3.4 mg/dL (2.5-4.9); POTASSIUM 3.5 mmol/L (3.5-5.1)
[2017-06-20 09:38] LABS: BAND % (MANUAL) 6 % (0.0-5.0); EOSINOPHILS % (MANUAL) 5 % (0-4); LYMPHOCYTES % (MANUAL) 3 % (16-48); MONOCYTES % (MANUAL) 2 % (0-11.0); NEUTROPHILS % (MANUAL) 84 (42-76)
[2017-06-20] MEDS ORDERED: LIDOCAINE 1%-EPI 1:100,000 50 ML VIAL IJ ONE (13:00)
--- NOTE | 2017-06-20 14:00 | NUR ---
MS RN NOTES Seen and evaluated [facility]
--- NOTE | 2017-06-20 14:05 | NUR ---
MS RN NOTES SEEN AND EVALUATED BY DR VEE WITH NEW ORDERS MADE. DR DARA VEE COLLECTED WOUND SPECIMEN ON THE LEFT ANKLE. PATIENT TOLERATED WELL.
--- NOTE | 2017-06-20 15:48 | NUR ---
TEXTED DR. GONZALEZ FOR MRI APPROVAL.
[2017-06-20 16:00] VITALS: BP 136/71
--- NOTE | 2017-06-20 19:00 | NUR ---
MS RN NOTES PATIENT IN BED ALERT ORIENTED X4. NO ACUTE DISTRESS NOTED. NO SIGN DISTRESS NOTED. NO SOB NOTED. DENIED ANY PAIN. IV ACCESS PATENT AND INTACT, NO REDNESS OR SWELLING NOTED.DUE MEDICATIONS GIVEN, NO ASE NOTED. NEEDS ATTENDED AND ANTICIPATED. SAFETY MEASURES IN PLACE. HEAD OF BED ELEVATED. CALL LIGHT WITHIN REACH. WILL ENDORSE TO NIGHT NURSE FOR CONTINUITY OF CARE.
--- NOTE | 2017-06-20 19:15 | NUR ---
MS RN OPENING NOTES UPON RECEIVING REPORT, PT WAS BEING TRANSPORTED TO SCHEDULED MRI TO LEFT FOOT. PT APPEARS TO NOT BE IN ANY APPARENT DISTRESS. IV SITE INTACT, NO INFILTRATION NOTED. DRESSING KEPT CLEAN AND DRY.WILL CONTINUE TO MONITOR THROUGHOUT SHIFT FOR CONTINUITY OF CARE.
[2017-06-20 20:00] VITALS: BP 136/68
--- NOTE | 2017-06-20 20:37 | NUR ---
MS RN NOTES PT CAME BACK FROM MRI IN STABLE CONDITION. PT ABLE TO MAKE NEEDS KNOWN. PT KEPT CLEAN AND COMFORTABLE. WILL CONTINUE TO MONITOR THROUGHOUT SHIFT.
--- NOTE | 2017-06-20 20:53 | NUR ---
MS RN NOTES RECEIVED A CALL FROM LAB, SPOKE WITH DINORA ABDI: BODILY FLUID RESULTS. LAB WAS ABLE TO GET WBC COUNT BUT NOT THE CHEMISTRY D/T WRONG TUBING. PAGED EPIC LOADERS FOR NOTIFICATION.
[2017-06-20] MEDS: CEFTRIAXONE 1 G in IV NS 0.9% 50 ML IV SCH (21:12)
[2017-06-20] MEDS: SIMVASTATIN 40 MG TABLET PO SCH (21:12)
--- NOTE | 2017-06-20 21:39 | NUR ---
RN NOTES BS 142. PT STATED HE DOES NOT WANT TO SNACK AND WILL BE NPO AT MIDNIGHT D/T PROCEDURE TOMORROW. LANTUS AND REGULAR INSULIN WITHHELD. NO S/SX OF HYPO/HYPERGLYCEMIA NOTED. WILL CONTINUE TO MONITOR.
--- NOTE | 2017-06-20 22:59 | NUR ---
MS RN NOTES RELAYED TO MARY LOUISE RE: LAB RESULTS OF BODILY FLUID ANALYSIS FROM LEFT FOOT AND ALSO MADE AWARE RE: CHEMISTRY NOT BEING ABLE TO BE DONE D/T WRONG TUBING W/ NO NEW ORDERS AT THIS TIME. WILL CONTINUE TO MONITOR.
[2017-06-21] VITALS (12 sets, daily range): BP systolic 112–148; BP diastolic 55–74
[2017-06-21] MEDS: MAGNESIUM HYDROXIDE 30 ML UDC PO PRN (03:36)
--- NOTE | 2017-06-21 06:29 | NUR ---
MS RN CLOSING NOTES NEEDS MET AND RENDERED. AWAKE AND RESPONSIVE, AFEBRILE. RESPIRATIONS ARE EVEN AND UNLABORED, NOT IN ANY ACUTE DISTRESS NOTED. DENIES ANY PAIN AT THIS TIME. IV SITE INTACT, NO INFILTRATION NOTED. DRESSING KEPT CLEAN AND DRY. SAFETY MEASURES ARE IN PLACE. REMINDED PT TO USE CALL LIGHT WHEN ASSISTANCE IS NEEDED, CALL LIGHT IS LEFT WITHIN REACH. WILL ENDORSE TO NEXT SHIFT FOR CONTINUITY OF CARE.
[2017-06-21] MEDS: LIOTHYRONINE SODIUM (25 MCG) 25 MCG TABLET PO SCH (07:30)
[2017-06-21 07:56] LABS: CALCIUM, SERUM 9.9 mg/dL (8.5-10.1); CREATININE 1.6 mg/dL (0.6-1.3); POTASSIUM 3.4 mmol/L (3.5-5.1)
--- NOTE | 2017-06-21 08:00 | NUR ---
RN NOTES RECEIVED PATIENT IN THE BED, A/O X4, GET IRRITABLE EASILY. PATIENT REFUSED PAIN AT THIS TIME. Addendum: 06/21/17 at 1247 by TONYA AYON RN PATIENT BED REST, USING URINAL. PATIENT HAS NO RESPIRATORY DISTRESS, V/S TAKEN STABLE. PATIENT NPO GOING TO HAVE A PROCEDURE SCHEDULED 1100 TODAY FOR BILATERAL LOWER EXTREMITIES INCISION AND DRAINAGE WITH EXCISIONAL DEBRIDEMENT. PRE -UP TEACHING DONE. PATIENT TURN AND REPOSITION SELF IN THE BED. NEEDS ATTENDED AND ANTICIPATED. CALL LIGHT WITHIN TO REACH, CONTINUED MONITORING.
[2017-06-21] MEDS: LACTOBACILLUS RHAMNOSUS GG 1 EACH CAP.SPRINK PO SCH ×2 (08:05→17:15)
[2017-06-21] MEDS: BLOOD SUGAR DIAGNOSTIC 1 EACH STRIP IN SCH ×4 (08:05→21:10)
[2017-06-21] MEDS: PREGABALIN 100 MG CAPSULE PO SCH ×3 (08:05→17:15)
[2017-06-21] MEDS: INSULIN GLARGINE, 100 UNIT/ML CARTRIDGE SQ SCH ×2 (08:06→21:17)
[2017-06-21] MEDS: BACITRACIN ZINC OINT (15 GM) 15 GM TUBE TP SCH (08:07)
[2017-06-21] MEDS: DAKINS HALF STRENGTH (0.25%) 480 ML BOTTLE TOP SCH (08:07)
[2017-06-21] MEDS ORDERED: POTASSIUM CHLORIDE 20 MEQ TAB.PRT.SR PO SCH ×2 (10:00→17:30)
--- NOTE | 2017-06-21 12:00 | NUR ---
RN NOTES BS-170 MG/DL, PATIENT NPO, NO COVERAGE GIVEN. ALSO PATIENT TV TECHNICIAN FOR SURGERY AT THIS TIME.
[2017-06-21] MEDS ORDERED: IPRATROPIUM NEB FS 0.5 MG/2.5 ML AMPUL.NEB ONE (12:45)
[2017-06-21] MEDS ORDERED: ALBUTEROL FS 2.5 MG/3 ML VIAL.NEB ONE (12:45)
[2017-06-21] MEDS ORDERED: KETAMINE HCL (500MG/10ML) 50 MG/ML VIAL ONE (12:48)
[2017-06-21] MEDS ORDERED: FENTANYL PF 100MCG/2ML AMPUL ONE (12:48)
[2017-06-21] MEDS ORDERED: SUCCINYLCHOLINE CHLORIDE 20 MG/ML VIAL ONE (12:49)
[2017-06-21] MEDS ORDERED: ALBUTEROL FS 2.5 MG/3 ML VIAL.NEB NEB PRN (13:00)
[2017-06-21] MEDS ORDERED: IPRATROPIUM NEB FS 0.5 MG/2.5 ML AMPUL.NEB NEB PRN (13:00)
[2017-06-21] MEDS ORDERED: BUPIVACAINE 0.25% 75 MG/30 ML VIAL ONE (13:22)
[2017-06-21] MEDS ORDERED: BUPIVACAINE MPF 0.75% 30 ML VIAL ONE (13:22)
[2017-06-21] MEDS ORDERED: BUPIVACAINE 0.75% DEXT-PF 2 ML AMPUL IJ ONE (13:26)
--- NOTE | 2017-06-21 15:28 | NUR ---
CHECKED ON PRN TX. PATIENT CLAIMS NO RESPIRATORY DISTRESS OR SOB.
--- NOTE | 2017-06-21 16:00 | NUR ---
MS RN NOTES PATIENT RETURNED TO UNIT AT 1545, REPORT OBTAINED FROM MADDI. PATIENT RESTING INSIDE ROOM, AWAKE, ALERT AND ORIENTED. ABLE TO MAKE NEEDS KNOWN AND FOLLOW SIMPLE INSTRUCTIONS. BREATHING EVEN AND UNLABORED. NO SOB OR ACUTE DISTRESS NOTED. PATIENT S/P BLE I&D & EXCISIONAL DEBRIDEMENT. PATEINT AFEBRILE, SKIN DRY AND WARM TO TOUCH. WILL CONTINUE TO MONITOR
[2017-06-21] MEDS: INSULIN REGULAR, HUMAN 100 UNIT/ML 3 ML VIAL SQ PRN (17:14)
--- NOTE | 2017-06-21 18:51 | NUR ---
MS RN NOTES PATIENT RESTING INSIDE ROOM. AWAKE, ALERT AND ORIENTED. ABLE TO MAKE NEEDS KNOWN AND FOLLOW SIMPLE INSTRUCTIONS. PATIENT BREATHING EVEN AND UNLABORED. NO SOB OR ACUTE DISTRESS NOTED. PATIENT AFEBRILE, SKIN DRY AND WARM TO TOUCH. NO CHANGES IN LOC NOTED AT THIS TIME. IV SITE ON RFA INTACT AND PATENT, NO BLEEDING OR SWELLING NOTED. BLE ELEVATED AND FLOATED WITH PILLOWS WHILE ON BED. WILL ENDORSE TO INCOMING SHIFT FOR BENITEZ. BED LOCKED AND IN LOW POSITION. BILATERAL UPPER SIDE RAILS UP AND LOCKED. CALL LIGHT WITHIN EASY REACH
--- NOTE | 2017-06-21 19:24 | NUR ---
MS RN OPENING NOTES: RECEIVED PT IN BED AND IS AWAKE. PT ON ROOM AIR AND IS TOLERATING WELL. PT A/OX3. PT HAS IV ON LEFT FOREARM #20G AND IS PATENT AND INTACT. PT IS S/P BILATERAL LOWER EXTREMITY INCISION AND DRAINAGE WITH EXCISION DEBRIDEMENT. CHRYSTAL BANDAGE NOTED ON BOTH LOWER EXTREMITIES. CALL LIGHT WITHIN PT'S REACH. BED KEPT IN LOW, LOCKED POSITION, AND SIDE RAILS X 2UP. WILL CONTINUE TO MONITOR PT.
[2017-06-21] MEDS: ALBUTEROL FS 2.5 MG/3 ML VIAL.NEB NEB SCH ×2 (19:30→21:28)
[2017-06-21] MEDS: IPRATROPIUM NEB FS 0.5 MG/2.5 ML AMPUL.NEB NEB SCH ×2 (19:30→21:27)
--- NOTE | 2017-06-21 20:28 | NUR ---
RN NOTES: SPOKE WITH FREEZER WORKER MARY Baptiste GOT ORDER FOR PRN DOCUSATE DAILY PT IS REQUESTING FOR ONE.
[2017-06-21] MEDS ORDERED: DOCUSATE SODIUM 250 MG CAPSULE PO PRN (20:30)
[2017-06-21] MEDS: CEFTRIAXONE 1 G in IV NS 0.9% 50 ML IV SCH (20:37)
--- NOTE | 2017-06-21 20:55 | NUR ---
MS RN NOTES: INFORMED HUMAN RESOURCES TRAINER MARY Baptiste PT IS COUGHING. HE IS REQUESTING FOR COUGH MEDICINE. GOT ORDER FOR CHELSIE [place] PRN. WILL CONTINUE TO MONITOR PT.
[2017-06-21] MEDS: SIMVASTATIN 40 MG TABLET PO SCH (21:10)
[2017-06-21] MEDS: GUAIFENESIN/D-METHORPHAN HB 5 ML UDC PO PRN (21:10)
[2017-06-21] MEDS: *INSULIN REGULAR(HUMULIN R)HUM 100 UNIT/ML VIAL SQ PRN (21:18)
--- NOTE | 2017-06-21 21:26 | NUR ---
MS RN NOTES: BLOOD SUGAR 210. LANTUS 30 UNITS WAS ADMINISTERED. 4 UNITS OF REGULAR INSULIN WAS ADMINISTERED WELL. SNACK PROVIDED. COUGH MEDICATION ADMINISTERED WELL.
--- NOTE | 2017-06-21 21:28 | NUR ---
MS RN NOTES: ATROVENT AND VENTOLIN NON ADMIN FOR 1529 SINCE PT WAS NOT HERE. PT WAS OUT FOR PROCEDURE.
--- NOTE | 2017-06-21 21:30 | NUR ---
RN NOTES: PAGED RT FOR SCHEDULED BREATHING TX.
--- NOTE | 2017-06-21 21:37 | NUR ---
FIRST ROUND TX MISSED, RT NOT AWARE WILL START AT 0100, PT STABLE RN AWARE
--- NOTE | 2017-06-21 23:24 | NUR ---
MS RN NOTES: PT REQUESTING FOR SLEEP MEDICATION. INFORMED INFORMATION ASSURANCE MANAGER MARY Baptiste GOT ORDER FOR BENADRYL 50MG PO PRN.
[2017-06-21] MEDS: diphenhydrAMINE HCL 50 MG CAPSULE PO PRN (23:30)
--- NOTE | 2017-06-21 23:32 | NUR ---
MS RN NOTES: PT REQUESTING FOR SLEEP MEDICATION. PT WAD ADMINISTERED BENADRYL 50MG PO. WILL CONTINUE TO MONITOR.
[2017-06-22] MEDS: HYDROCODONE/APAP 5/325MG 1 EACH TABLET PO PRN (01:09)
--- NOTE | 2017-06-22 01:13 | NUR ---
MS RN NOTES: PT COMPLAINING OF 7/10 GENERALIZED PAIN. PT WAS ADMINISTERED NORCO 2 TABS. WILL CONTINUE TO MONITOR PT.
[2017-06-22] MEDS: ALBUTEROL FS 2.5 MG/3 ML VIAL.NEB NEB SCH ×4 (01:30→19:27)
[2017-06-22] MEDS: IPRATROPIUM NEB FS 0.5 MG/2.5 ML AMPUL.NEB NEB SCH ×4 (01:30→19:27)
[2017-06-22] MEDS: BLOOD SUGAR DIAGNOSTIC 1 EACH STRIP IN SCH ×4 (06:14→22:09)
[2017-06-22] MEDS: INSULIN REGULAR, HUMAN 100 UNIT/ML 3 ML VIAL SQ PRN ×3 (06:15→17:40)
--- NOTE | 2017-06-22 06:16 | NUR ---
MS RN NOTES: BLOOD SUGAR THIS AM WAS 161. 4 UNITS OF INSULIN WAS ADMINISTERED. PRUNE JUICE PROVIDED WELL.
--- NOTE | 2017-06-22 06:53 | NUR ---
MS RN CLOSING NOTES: ALL NEEDS WERE ATTENDED AND ANTICIPATED FOR. PT ON ROOM AIR AND TOLERATING WELL. PT'S BILATERAL LOWER EXTREMITIES DRESSING IN PLACE. PT HAS IV ON LEFT FOREARM #20G AND IS PATENT AND INTACT. CURRENTLY S/L. CALL LIGHT WITHIN PT'S REACH. BED KEPT IN LOW, LOCKED POSITION, AND SIDE RAILS X 2 UP. WILL ENDORSE TO AM NURSE FOR BENITEZ.
--- NOTE | 2017-06-22 07:15 | NUR ---
MSRN OPENING NOTES. PT RECEIVED A&0X3, RESTING AND REQUESTING MORE SLEEP. PT TOLERATING ROOM AIR WITHOUT S/S OF RESP DISTRESS. PT REPORTS ADEQUATE PAIN MANAGEMENT. PT WITH IVC AT L FA G#2O INTACT AND SALINE FLUSH PATENT. PT DRESSING INTACT AND NAD. PT AWARE OF NOT TO AMBULATE, URINAL WITHIN REACH. PT BED IN LOWEST LOCKED POSITION WITH HANDRAILSX2 AND CALL EUCEDA WITHIN REACH. PT BRIEFED ON TODAY'S POC AND IS WITHOUT CONCERN OR COMPLAINT AT THIS TIME.
[2017-06-22 07:25] LABS: BASOPHILS % (AUTO) 0.3 % (0.0-2.0); EOSINOPHILS % (AUTO) 3.6 % (0.0-6.0); HEMATOCRIT 43 % (39-51); HEMOGLOBIN 14.5 g/dL (13.5-17.5); LYMPHOCYTES # (AUTO) 1.6 /CMM (0.8-4.8); LYMPHOCYTES % (AUTO) 13.2 % (20.0-44.0); MEAN CORPUSCULAR HGB CONC 34 g/dl (31.0-36.0); MEAN CORPUSCULAR VOLUME 80 fL (80-96); MONOCYTES # (AUTO) 1.1 /CMM (0.1-1.30); MONOCYTES % (AUTO) 8.8 % (2.0-12.0); NEUTROPHILS # (AUTO) 9.1 /CMM (1.8-8.9); NEUTROPHILS % (AUTO) 74.1 % (43.0-81.0); PLATELET COUNT (AUTO) 259 /CMM (150-450); RDW COEFFICIENT OF VARIATION 17.6 (11.5-15.0); RED BLOOD CELL COUNT(AUTO) 5.37 MIL/uL (4.5-6.0); WHITE BLOOD COUNT (AUTO) 12.3 K/uL (4.3-11.0)
[2017-06-22 07:52] LABS: CALCIUM, SERUM 9.5 mg/dL (8.5-10.1); CREATININE 1.6 mg/dL (0.6-1.3); MAGNESIUM 2.1 mg/dL (1.8-2.4); PHOSPHORUS 3.1 mg/dL (2.5-4.9); POTASSIUM 3.6 mmol/L (3.5-5.1)
[2017-06-22 08:00] VITALS: BP 136/65
[2017-06-22] MEDS: LIOTHYRONINE SODIUM (25 MCG) 25 MCG TABLET PO SCH (08:19)
[2017-06-22] MEDS: PREGABALIN 100 MG CAPSULE PO SCH ×3 (08:24→17:28)
[2017-06-22] MEDS: INSULIN GLARGINE, 100 UNIT/ML CARTRIDGE SQ SCH ×2 (08:24→20:57)
[2017-06-22] MEDS: LACTOBACILLUS RHAMNOSUS GG 1 EACH CAP.SPRINK PO SCH ×2 (08:24→17:28)
[2017-06-22] MEDS: BACITRACIN ZINC OINT (15 GM) 15 GM TUBE TP SCH (09:00)
--- NOTE | 2017-06-22 14:00 | NUR ---
MSRN NOTES. WOUND CARE COMPLETED PER RX.
[2017-06-22 16:00] VITALS: BP 138/70
[2017-06-22] MEDS: ACETAMINOPHEN 325 MG TABLET PO PRN (16:00)
[2017-06-22] MEDS: GUAIFENESIN/D-METHORPHAN HB 5 ML UDC PO PRN (16:00)
[2017-06-22] MEDS: DAKINS HALF STRENGTH (0.25%) 480 ML BOTTLE TOP SCH (17:26)
[2017-06-22] MEDS: RIFAMPIN 300 MG CAPSULE PO SCH (17:29)
--- NOTE | 2017-06-22 19:32 | NUR ---
MSRN CLOSING NOTES. PT RESTING IN BED WITHOUT PAIN AND TOLERATING ROOM AIR WITHOUT S/S OF DISTRESS OR DISCOMFORT. PT WITH IVC AT L FA G#2O INTACT AND SL. PT DRESSING'S CHANGED WITH WOUND CARE PRE RX. PT BED IN LOWEST LOCKED POSITION WITH HANDRAILSX2 AND CALL EUCEDA WITHIN REACH. ALL DAY NURSE DUTIES ATTENDED TO AND PT IS WITHOUT CONCERN OR COMPLAINT AT THIS TIME. WILL ENDORSE TO NIGHT NURSE AT BEDSIDE FOR BENITEZ.
--- NOTE | 2017-06-22 19:40 | NUR ---
MS RN NOTES RECEIVED RESTING COMFORTABLY ON BED,BREATHING TREATMENT IN PROGRESS.BILATERAL FOOT DRESSING INTACT AND DRY.SALINE LOCK LEFT HAND INTACT AND PATENT.DENIES PAIN AT THE MOMENT.CALL LIGHT IN REACH,NEEDS ANTICIPATED.
[2017-06-22 20:00] VITALS: BP_SYST 134; BP_SYST 145; BP_DIAS 65; BP_DIAS 70
[2017-06-22] MEDS: CEFTRIAXONE 1 G in IV NS 0.9% 50 ML IV SCH (20:44)
--- NOTE | 2017-06-22 21:00 | NUR ---
MS RN NOTES ACCU-CHECK BLOOD SUGAR CHECK 150,LANTUS 30 UNITS GIVEN PER PATIENT REQUEST,SNACKS PROVIDED AT BEDSIDE.
--- NOTE | 2017-06-22 22:00 | NUR ---
MS RN NOTES ACCU-CHECK BLOOD SUGAR CHECK 179,ALREADY ATE HIS SNACKS.COVERED WITH HUMULIN R 3 UNITS PER SLIDING SCALE.
[2017-06-22] MEDS: diphenhydrAMINE HCL 50 MG CAPSULE PO PRN (22:09)
[2017-06-22] MEDS: SIMVASTATIN 40 MG TABLET PO SCH (22:09)
[2017-06-22] MEDS: *INSULIN REGULAR(HUMULIN R)HUM 100 UNIT/ML VIAL SQ PRN (22:16)
[2017-06-23] MEDS: IPRATROPIUM NEB FS 0.5 MG/2.5 ML AMPUL.NEB NEB SCH ×6 (01:10→19:19)
[2017-06-23] MEDS: ALBUTEROL FS 2.5 MG/3 ML VIAL.NEB NEB SCH ×6 (01:10→19:19)
--- NOTE | 2017-06-23 01:10 | NUR ---
MS RN NOTES RT AT BEDSIDE OFFERING BREATHING TREATMENT BUT REFUSED.CLAIMED NOT TO WAKE HIM UP JUST FOR BREATHING TREATMENT.
[2017-06-23] MEDS: GUAIFENESIN/D-METHORPHAN HB 5 ML UDC PO PRN ×2 (05:03→21:36)
[2017-06-23] MEDS: BLOOD SUGAR DIAGNOSTIC 1 EACH STRIP IN SCH ×4 (05:03→21:23)
--- NOTE | 2017-06-23 05:03 | NUR ---
MS RN NOTES COUGHING,ROBITUSSIN DM 5ML GIVEN. RT AT BEDSIDE ADMINISTERING BREATHING TREATMENT.
--- NOTE | 2017-06-23 05:03 | NUR ---
MS RN NOTES ACCU-CHECK BLOOD SUGAR CHECK 165,WILL COVER WITH HUMULIN R 4 UNITS PER SLIDING SCALE.
--- NOTE | 2017-06-23 06:32 | NUR ---
MS RN NOTES FAIRLY RESTED AT NOC,NO SOB,TOLERATED BREATHING TREATMENT GIVEN BY RT SCHEDULED.DENIES PAIN.ASKED IF HE CAN HAVE HIS CONTRAVE-ER MEDS WHICH WAS HELD BY DARA HENSLEY,WILL FOLLOW UP.DRESSING ON LOWER EXTREMITIES REMAINS INTACT AND DRY.CALL LIGHT IN REACH,NEEDS ATTENDED.WILL ENDORSE TO DAY NURSE FOR BENITEZ.
--- NOTE | 2017-06-23 07:36 | NUR ---
MSRN OPENING NOTES. PT RECEIVED A&0X3, SLEEPING AND REQUESTING NOT TO BE WOKEN UP AGAIN. PT TOLERATING ROOM AIR WITHOUT S/S OF RESP DISTRESS. PT DENIES PAIN. PT WITH IVC AT L FA G#2O INTACT AND SALINE FLUSH PATENT. PT DRESSING VISUALIZED INTACT AND NAD. PT BILAT NWB. PT BED IN LOWEST LOCKED POSITION WITH HANDRAILSX2 AND CALL EUCEDA AND URINAL WITHIN REACH. WILL BRIEF PT ON TODAY'S POC AT BREAKFAST, PT IS WITHOUT CONCERN OR COMPLAINT AT THIS TIME.
[2017-06-23 07:41] LABS: BASOPHILS % (AUTO) 0.2 % (0.0-2.0); EOSINOPHILS % (AUTO) 4.3 % (0.0-6.0); HEMATOCRIT 42 % (39-51); HEMOGLOBIN 14.1 g/dL (13.5-17.5); LYMPHOCYTES # (AUTO) 1.9 /CMM (0.8-4.8); LYMPHOCYTES % (AUTO) 16.4 % (20.0-44.0); MEAN CORPUSCULAR HGB CONC 34 g/dl (31.0-36.0); MEAN CORPUSCULAR VOLUME 79 fL (80-96); MONOCYTES # (AUTO) 0.8 /CMM (0.1-1.30); MONOCYTES % (AUTO) 6.5 % (2.0-12.0); NEUTROPHILS # (AUTO) 8.6 /CMM (1.8-8.9); NEUTROPHILS % (AUTO) 72.6 % (43.0-81.0); PLATELET COUNT (AUTO) 276 /CMM (150-450); RDW COEFFICIENT OF VARIATION 18.1 (11.5-15.0); RED BLOOD CELL COUNT(AUTO) 5.31 MIL/uL (4.5-6.0); WHITE BLOOD COUNT (AUTO) 11.9 K/uL (4.3-11.0)
[2017-06-23 07:50] LABS: CALCIUM, SERUM 9.7 mg/dL (8.5-10.1); CREATININE 1.4 mg/dL (0.6-1.3); MAGNESIUM 1.9 mg/dL (1.8-2.4); POTASSIUM 3.7 mmol/L (3.5-5.1)
[2017-06-23 08:05] VITALS: BP 137/63
[2017-06-23] MEDS: RIFAMPIN 300 MG CAPSULE PO SCH (09:20)
[2017-06-23] MEDS: LIOTHYRONINE SODIUM (25 MCG) 25 MCG TABLET PO SCH (09:20)
[2017-06-23] MEDS: LACTOBACILLUS RHAMNOSUS GG 1 EACH CAP.SPRINK PO SCH ×2 (09:20→17:40)
[2017-06-23] MEDS: PREGABALIN 100 MG CAPSULE PO SCH ×3 (09:20→17:40)
[2017-06-23] MEDS: INSULIN GLARGINE, 100 UNIT/ML CARTRIDGE SQ SCH ×2 (09:25→21:27)
[2017-06-23] MEDS: INSULIN REGULAR, HUMAN 100 UNIT/ML 3 ML VIAL SQ PRN ×3 (09:27→17:46)
[2017-06-23] MEDS: BACITRACIN ZINC OINT (15 GM) 15 GM TUBE TP SCH (09:29)
[2017-06-23] MEDS: DAKINS HALF STRENGTH (0.25%) 480 ML BOTTLE TOP SCH (09:29)
[2017-06-23 16:00] VITALS: BP 140/76
--- NOTE | 2017-06-23 17:00 | NUR ---
MSRN NOTES. WOUND CARE. L FOOT MEDIAL INCISION. DURING PT L FOOT DRESSING CHANGE THE MEDIAL INCISION WAS NOTED WITH SIGNIFICANT PUSS EXUDATE. L FOOT L-LAT INCISION. AFTER IRRIGATING AND SOAKING WITH NS, PACKING WAS REMOVED FROM L LATERAL INCISION, INCISION STARTED BLEEDING, LIMB ALREADY ELEVATED, FIRM PALMAR PRESSURE APPLIED WITH ICE FOR 15MIN. CN ALERTED. BLEEDING CEASED. WOUND CARE COMPLETED PER RX.
[2017-06-23] MEDS: HYDROCODONE/APAP 5/325MG 1 EACH TABLET PO PRN (17:41)
--- NOTE | 2017-06-23 18:43 | NUR ---
MSRN CLOSING NOTES. PT RELAXING IN BED AND TOLERATING ROOM AIR WITHOUT S/S OF RESP DISTRESS. PT REPORTS ADEQUATE PAIN MANAGEMENT. PT WITH IVC AT L FA G#2O INTACT AND SL. PT WOUND CARE COMPLETED PER RX. PT BED IN LOWEST LOCKED POSITION WITH HANDRAILSX2 AND CALL EUCEDA AND URINAL WITHIN REACH. ALL DAY NURSE DUTIES ATTENDED TO AND PT IS WITHOUT CONCERN OR COMPLAINT AT THIS TIME. WILL ENDORSE TO NIGHT NURSE AT BEDSIDE FOR BENITEZ.
--- NOTE | 2017-06-23 19:30 | NUR ---
RN NOTES RECEIVED PATIENT IN BED AWAKE. AO X 3, ABLE TO MAKE NEEDS KNOWN. NO ACUTE DISTRESS NOTED. DENIES ANY PAIN AT THIS TIME. IV SITE PATENT, INTACT; FLUSHED. BILATERAL FOOT DRESSINGS INTACT. SAFETY REMINDERS GIVEN. ON LOW BED WITH BILATERAL UPPER SIDE RAILS UP. CALL EUCEDA WITHIN EASY REACH. WILL CONTINUE TO MONITOR.
[2017-06-23 20:00] VITALS: BP 134/65
[2017-06-23] MEDS: SIMVASTATIN 40 MG TABLET PO SCH (21:23)
[2017-06-23] MEDS: CEFTRIAXONE 1 G in IV NS 0.9% 50 ML IV SCH (21:34)
[2017-06-23] MEDS: *INSULIN REGULAR(HUMULIN R)HUM 100 UNIT/ML VIAL SQ PRN (21:36)
[2017-06-24] MEDS: HYDROCODONE/APAP 5/325MG 1 EACH TABLET PO PRN ×2 (00:15→21:17)
[2017-06-24] MEDS: IPRATROPIUM NEB FS 0.5 MG/2.5 ML AMPUL.NEB NEB SCH ×4 (00:55→20:20)
[2017-06-24] MEDS: ALBUTEROL FS 2.5 MG/3 ML VIAL.NEB NEB SCH ×4 (00:55→20:20)
[2017-06-24] MEDS: BLOOD SUGAR DIAGNOSTIC 1 EACH STRIP IN SCH ×4 (06:37→21:10)
[2017-06-24] MEDS: INSULIN REGULAR, HUMAN 100 UNIT/ML 3 ML VIAL SQ PRN ×3 (06:38→17:52)
--- NOTE | 2017-06-24 06:52 | NUR ---
RN NOTES PATIENT ASLEEP, EASILY AROUSABLE. RESPIRATIONS EVEN. NO SIGNS OF PAIN NOTED. NO SYMPTOMS OF HYPER/HYPOGLYCEMIA. DUE MEDS GIVEN WITH NO ASE NOTED. NEEDS ATTENDED. SAFETY PRECAUTIONS AND COMFORT MEASURES IN PLACE. WILL GIVE REPORT TO DAY SHIFT FOR CONTINUITY OF CARE.
[2017-06-24 08:00] VITALS: BP 142/63
--- NOTE | 2017-06-24 08:00 | NUR ---
RN NOTES SEEN PATIENT IN THE BED RESTING, A/O X4, UNKEMPT, GET IRRITABLE EASILY. ENCOURAGED TO EXPRESS FEELINGS AND CONCERNS. V/S TAKEN STABLE.PATIENT HAS NO RESPIRATORY DISTRESS, BS-161 MG/DL, SCHEDULED MEDICATION ADMINISTERED. PATIENT HAS A WOUND BILATERAL LOWER EXTREMITIES, ALSO WOUND UPPER CHEST. IN ACCESS ON LEFT HAND INTACT. PATIENT TURN AND REPOSTION SELF IN THE BED, NEEDS ATTENDED AND ANTICIPATED, CALL LIGHT WITHIN TO REACH, CONTINUED MONITORING.
[2017-06-24] MEDS: PREGABALIN 100 MG CAPSULE PO SCH ×3 (08:40→17:46)
[2017-06-24] MEDS: LACTOBACILLUS RHAMNOSUS GG 1 EACH CAP.SPRINK PO SCH ×2 (08:40→17:46)
[2017-06-24] MEDS: LIOTHYRONINE SODIUM (25 MCG) 25 MCG TABLET PO SCH (08:40)
[2017-06-24] MEDS: RIFAMPIN 300 MG CAPSULE PO SCH (08:40)
[2017-06-24] MEDS: DAKINS HALF STRENGTH (0.25%) 480 ML BOTTLE TOP SCH (08:41)
[2017-06-24] MEDS: BACITRACIN ZINC OINT (15 GM) 15 GM TUBE TP SCH (08:42)
[2017-06-24] MEDS: INSULIN GLARGINE, 100 UNIT/ML CARTRIDGE SQ SCH ×2 (08:56→21:11)
[2017-06-24 09:36] LABS: BASOPHILS % (AUTO) 0.4 % (0.0-2.0); EOSINOPHILS % (AUTO) 3.6 % (0.0-6.0); HEMATOCRIT 43 % (39-51); HEMOGLOBIN 14.6 g/dL (13.5-17.5); LYMPHOCYTES # (AUTO) 1.8 /CMM (0.8-4.8); LYMPHOCYTES % (AUTO) 14.2 % (20.0-44.0); MEAN CORPUSCULAR HGB CONC 34 g/dl (31.0-36.0); MEAN CORPUSCULAR VOLUME 79 fL (80-96); MONOCYTES # (AUTO) 0.8 /CMM (0.1-1.30); NEUTROPHILS # (AUTO) 9.6 /CMM (1.8-8.9); NEUTROPHILS % (AUTO) 75.8 % (43.0-81.0); PLATELET COUNT (AUTO) 362 /CMM (150-450); RED BLOOD CELL COUNT(AUTO) 5.42 MIL/uL (4.5-6.0); WHITE BLOOD COUNT (AUTO) 12.7 K/uL (4.3-11.0)
[2017-06-24 09:44] LABS: CALCIUM, SERUM 9.9 mg/dL (8.5-10.1); CREATININE 1.4 mg/dL (0.6-1.3); MAGNESIUM 1.8 mg/dL (1.8-2.4); PHOSPHORUS 3.5 mg/dL (2.5-4.9); POTASSIUM 3.6 mmol/L (3.5-5.1)
--- NOTE | 2017-06-24 12:42 | NUR ---
RN NOTES ADMINISTERED MILK OF MAGNESIA 30MLPO PRN FOR CONSTIPATION. BS 170 MG/DL, CONVERGE GIVEN, ALSO ADMINISTERED SCHEDULED MEDICATION PRESCRIBED, CONTINUED MONITORING.
[2017-06-24] MEDS: MAGNESIUM HYDROXIDE 30 ML UDC PO PRN (12:48)
--- NOTE | 2017-06-24 14:32 | NUR ---
PATIENT REFUSED ECHO TEST. ATTENDING NURSE (STONE) ADVISED.
[2017-06-24 16:00] VITALS: BP 126/58
--- NOTE | 2017-06-24 17:00 | NUR ---
RN NOTES BS-139 MG/DL, COVERAGE GIVEN, ALSO ADMINISTERED SCHEDULED MEDICATION, V/S STABLE. FAMILY NEXT TO THE BED. ASSIST PATIENT TURN AND REPOSTION Q 2 HR. PATIENT HAS A SPLINT ON LEFT LOWER LEG, NEEDS ATTENDED AND ANTICIPATED, PATIENT REFUSED PAIN AT THIS TIME. CONTINUED MONITORING.
--- NOTE | 2017-06-24 18:30 | NUR ---
RN NOTES PATIENT STABLE AT THIS TIME. LYING IN THE BED, USING URINAL. ENDORSED ONCOMING NURSE FOR BENITEZ.
--- NOTE | 2017-06-24 19:30 | NUR ---
RN NOTE RECEIVED PT IN BED SLEEPING, AROUSE EASILY.BREATHING EVENLY. NO SOB. NO S/S OF PAIN OR DISCOMFORT. DRESSING ON BLE CDI. W/ SPLINT ON THE LLE. . BED LOW LOCKED. CALL LIGHT WITHIN REACH. WILL CONT TO MONITOR
[2017-06-24 20:00] VITALS: BP 155/63
[2017-06-24] MEDS: CEFTRIAXONE 1 G in IV NS 0.9% 50 ML IV SCH (21:10)
[2017-06-24] MEDS: *INSULIN REGULAR(HUMULIN R)HUM 100 UNIT/ML VIAL SQ PRN (21:12)
[2017-06-24] MEDS: SIMVASTATIN 40 MG TABLET PO SCH (21:14)
--- NOTE | 2017-06-24 21:17 | NUR ---
NORCO 5-325 X TWO GIVEN ORDERED FOR C/O MODERATE GENERALIZED BODY PAIN. ALSO PRUNE JUICE GIVEN FOR CONSTIPATION. WILL CONT TO MONITOR .
[2017-06-25] MEDS: ALBUTEROL FS 2.5 MG/3 ML VIAL.NEB NEB SCH ×4 (01:31→19:30)
[2017-06-25] MEDS: IPRATROPIUM NEB FS 0.5 MG/2.5 ML AMPUL.NEB NEB SCH ×4 (01:31→19:30)
--- NOTE | 2017-06-25 06:22 | NUR ---
PT IN BED AWAKE AND ALERT. BREATHING EVENLY. NO SOB. NO ACUTE EVENT DURING THE NIGHT. DRESSING ON BLE REMAINED CDI. NO C/O PAIN OR DISCOMFORT, ASSISTED W/ ADLS. BED LOW LOCKED. CALL LIGHT WITHIN REACH., WILL CONT TO MONITOR AND WILL ENDORSE TO AM SHIFT FOR BENITEZ.
[2017-06-25] MEDS: BLOOD SUGAR DIAGNOSTIC 1 EACH STRIP IN SCH ×4 (06:50→22:00)
[2017-06-25] MEDS: INSULIN REGULAR, HUMAN 100 UNIT/ML 3 ML VIAL SQ PRN ×2 (06:58→12:35)
--- NOTE | 2017-06-25 08:30 | NUR ---
ms rn received pn bed,awake,alert,oriented x4,not in any form of distress, respirations even and unlabored,no sob noted, lungs are clear,abdomen soft, positive bowel sounds,denies pain at this time.will monitor patient's condition
--- NOTE | 2017-06-25 08:39 | NUR ---
REPORT GIVEN TO JOEL FOR BENITEZ
[2017-06-25 09:06] VITALS: BP 135/66
--- NOTE | 2017-06-25 09:35 | NUR ---
ms sky breakfast served,due meds given,tolerated well.
[2017-06-25] MEDS: MAGNESIUM HYDROXIDE 30 ML UDC PO PRN (09:57)
[2017-06-25] MEDS: LIOTHYRONINE SODIUM (25 MCG) 25 MCG TABLET PO SCH (09:57)
[2017-06-25] MEDS: PREGABALIN 100 MG CAPSULE PO SCH ×3 (09:57→17:47)
[2017-06-25] MEDS: LACTOBACILLUS RHAMNOSUS GG 1 EACH CAP.SPRINK PO SCH ×2 (09:57→17:47)
[2017-06-25] MEDS: RIFAMPIN 300 MG CAPSULE PO SCH (09:58)
[2017-06-25] MEDS: BACITRACIN ZINC OINT (15 GM) 15 GM TUBE TP SCH (10:00)
[2017-06-25] MEDS: DAKINS HALF STRENGTH (0.25%) 480 ML BOTTLE TOP SCH (10:00)
[2017-06-25] MEDS: INSULIN GLARGINE, 100 UNIT/ML CARTRIDGE SQ SCH ×2 (10:21→20:18)
--- NOTE | 2017-06-25 11:30 | NUR ---
ms rn was seen by dr. gonzales amador/ orders made and carried out.
[2017-06-25] MEDS ORDERED: BISACODYL SUPP (10 MG) 10 MG/SUPP.RECT SUPP.RECT RC PRN (12:30)
--- NOTE | 2017-06-25 13:54 | NUR ---
PATIENT REFUSED ECHO TEST 4X. CHARGE NURSE (SHALA) ADVISED.
[2017-06-25] MEDS: POLYETHYLENE GLYCOL 3350 17 GM POWD.PACK PO SCH ×2 (17:48→22:00)
--- NOTE | 2017-06-25 18:41 | NUR ---
ms rn for discharge tonight after iv given. no change of condition.
--- NOTE | 2017-06-25 19:00 | NUR ---
ms rn ready for discharge, pictures taken on right foot, pt refused left foot to be taken due to partial cast present.
--- NOTE | 2017-06-25 19:45 | NUR ---
MS RN NOTE RECEIVED PATIENT AWAKE AND ALERT IN BED. PER PATIENT, NO ONE IS PICKING HIM UP. I CALLED BOTH SONS, JAMSHID AND SILVIA, WHO BOTH REPORTED THEY WOULD NOT BE PICKING UP PATIENT. SON JAMSHID STATED THAT HIS DAD IS UNABLE TO LIVE ON HIS OWN. UNABLE TO GO TO THE BATHROOM ON HIS OWN. PATIENT IS NWB AND PLACEMENT IS NEEDED. ASSURANCE SERVICES MANAGER [facility] NOTIFIED.
[2017-06-25] MEDS: diphenhydrAMINE HCL 50 MG CAPSULE PO PRN (20:11)
[2017-06-25] MEDS: *INSULIN REGULAR(HUMULIN R)HUM 100 UNIT/ML VIAL SQ PRN (20:22)
[2017-06-25] MEDS: CEFTRIAXONE 1 G in IV NS 0.9% 50 ML IV SCH (20:32)
--- NOTE | 2017-06-25 21:00 | NUR ---
MS RN NOTE BLOOD SUGAR 234. INSULIN COVERAGE GIVEN BY SLIDING SCALE. WILL CONTINUE TO MONITOR.
[2017-06-25 22:00] VITALS: BP 122/75
[2017-06-25] MEDS: SIMVASTATIN 40 MG TABLET PO SCH (22:00)
[2017-06-26] MEDS: ALBUTEROL FS 2.5 MG/3 ML VIAL.NEB NEB SCH ×4 (01:30→19:30)
[2017-06-26] MEDS: IPRATROPIUM NEB FS 0.5 MG/2.5 ML AMPUL.NEB NEB SCH ×4 (01:30→19:30)
[2017-06-26] MEDS: LIOTHYRONINE SODIUM (25 MCG) 25 MCG TABLET PO SCH (06:37)
[2017-06-26] MEDS: BLOOD SUGAR DIAGNOSTIC 1 EACH STRIP IN SCH ×3 (06:38→17:47)
[2017-06-26] MEDS: INSULIN REGULAR, HUMAN 100 UNIT/ML 3 ML VIAL SQ PRN ×3 (06:41→17:58)
--- NOTE | 2017-06-26 06:47 | NUR ---
MS RN NOTE PATIENT STABLE. BLOOD SUGAR 163. 3 UNITS SLIDING SCALE INSULIN GIVEN.
[2017-06-26 08:00] VITALS: BP 148/53
[2017-06-26] MEDS: INSULIN GLARGINE, 100 UNIT/ML CARTRIDGE SQ SCH (09:00)
[2017-06-26] MEDS: RIFAMPIN 300 MG CAPSULE PO SCH (09:53)
[2017-06-26] MEDS: LACTOBACILLUS RHAMNOSUS GG 1 EACH CAP.SPRINK PO SCH ×2 (09:53→17:50)
[2017-06-26] MEDS: PREGABALIN 100 MG CAPSULE PO SCH ×3 (09:53→17:50)
[2017-06-26] MEDS: DAKINS HALF STRENGTH (0.25%) 480 ML BOTTLE TOP SCH (09:54)
[2017-06-26] MEDS: BACITRACIN ZINC OINT (15 GM) 15 GM TUBE TP SCH (12:58)
--- NOTE | 2017-06-26 15:30 | NUR ---
PER GERALD RIOS AND CASE MGMT. HOME ANTIBIOTICS HAS BEEN ARRANGED FOR ,CASE MGMT. WELL INFORMED PT. NEEDS HOSP. BED,W/C AND BEDSIDE COMMODE.
[2017-06-26 16:00] VITALS: BP 130/65
--- NOTE | 2017-06-26 16:00 | NUR ---
GERALD HERE AND DC MEDS BEING PUT IN TO COMPUTER.
--- NOTE | 2017-06-26 17:53 | NUR ---
REFUSED DISCHARGE PHOTOS,A FEW WERE DONE YESTERDAY DC WAS PLANNED ORIGINALLY 0N 06/25.
[2017-06-26] MEDS: CEFTRIAXONE 1 G in IV NS 0.9% 50 ML IV SCH (17:58)
--- NOTE | 2017-06-26 19:30 | NUR ---
MS RN NOTES RECEIVED PT IN BED, AWAKE, A/O X 3. VERBALLY RESPONSIVE. NO DISTRESS NOR SOB NOTED. RESPIRATION IS EVEN AND UNLABORED. NO C/O PAIN OR DISCOMFORT AT THIS TIME. LORENA PICC LINE INTACT AND PATENT, NO S/S OF INFILTRATION NOTED. IV SITE ON RIGHT HAND INTACT AND PATENT, NO S/S OF INFILTRATION NOTED. PT REFUSED DISCHARGE PICTURES , RISK AND BENEFITS EXPLAINED, PT STILL REFUSED X 3. LEFT FOOT WITH CLEAN , DRY AND INTACT DRESSING. NO BLEEDING NOTED. PT FOR DISCHARGE TO HOME TONIGHT WITH HOME HEALTH. DC INSTRUCTIONS AND EXIT CARE DONE BY DAY SHIFT RN. PT AWARE OF DISCHARGE. PT TO BE DISCHARGED WITH LORENA PICC LINE, PER DANI DUARTE PT WILL BE ON IV ATB PER DAY SHIFT RN. AWAITING FOR TRANSPORTATION.
--- NOTE | 2017-06-26 20:54 | NUR ---
ALL DC PAPERS ENDORSED AND GIVEN TO ALBERTO ([facility])
--- NOTE | 2017-06-26 20:54 | NUR ---
PT REMAINS A/O X 3, VERBALLY RESPONSIVE. DENIES ANY PAIN OR DISCOMFORT AT THIS TIME. IV ON RIGHT HAND REMOVED, PRESSURE APPLIED, NO BLEEDING NOTED. SON SILVIA AWARE THAT PT WILL BE ON THE WAY HOME SOON. PT WAS PICKED UP BY BILL WITH 2 CREWS. ABLE TO GET IN THE ELEVATOR SAFELY. ALL BELONGINGS SENT WITH THE PT.
--- NOTE | 2017-06-26 20:54 | NUR ---
PT REMAINS A/O X 3, VERBALLY RESPONSIVE. STABLE, NO DITRESS NOR SOB . DENIES ANY PAIN OR DISCOMFORT AT THIS TIME. IV ON RIGHT HAND REMOVED, PRESSURE APPLIED, NO BLEEDING NOTED. SON SILVIA AWARE THAT PT WILL BE ON THE WAY HOME SOON. PT WAS PICKED UP BY BILL WITH 2 CREWS. ABLE TO GET IN THE ELEVATOR SAFELY. ALL BELONGINGS SENT WITH THE PT.
== END 2017-06-26 21:10 | disposition home health service (06) | DRG 40 ==
LOC: ER 04:30 → MED 05:47
PROVIDERS: ADMIT Nurse Practitioner Acute Care; ATTEND Nurse Practitioner Acute Care
PROC: 0KBH0ZZ Excision of Right Thorax Muscle, Open Approach (ICD-10-PCS; principal; 2017-06-17)
PROC: 0KBV0ZZ Excision of Right Foot Muscle, Open Approach (ICD-10-PCS; 2017-06-19)
PROC: 0S9G3ZX Drainage of Left Ankle Joint, Percutaneous Approach, Diagnostic (ICD-10-PCS; 2017-06-20)
PROC: 0QBM0ZZ Excision of Left Tarsal, Open Approach (ICD-10-PCS; 2017-06-21)
PROC: 0KBV0ZZ Excision of Right Foot Muscle, Open Approach (ICD-10-PCS; 2017-06-21)
DX: E11.610 Type 2 diabetes mellitus with diabetic neuropathic arthropathy (principal); N17.0 Acute kidney failure with tubular necrosis; M00.9 Pyogenic arthritis, unspecified; E11.40 Type 2 diabetes mellitus with diabetic neuropathy, unspecified; E11.22 Type 2 diabetes mellitus with diabetic chronic kidney disease; D68.59 Other primary thrombophilia; M86.9 Osteomyelitis, unspecified; E87.1 Hypo-osmolality and hyponatremia; I50.9 Heart failure, unspecified; E11.621 Type 2 diabetes mellitus with foot ulcer; E11.65 Type 2 diabetes mellitus with hyperglycemia; S92.022A Displaced fracture of anterior process of left calcaneus, initial encounter for closed fracture; W06.XXXA Fall from bed, initial encounter; I12.9 Hypertensive chronic kidney disease with stage 1 through stage 4 chronic kidney disease, or unspecified chronic kidney disease; Y92.009 Unspecified place in unspecified non-institutional (private) residence as the place of occurrence of the external cause; N18.9 Chronic kidney disease, unspecified; L08.9 Local infection of the skin and subcutaneous tissue, unspecified; J44.9 Chronic obstructive pulmonary disease, unspecified; F41.9 Anxiety disorder, unspecified; F32.9 Major depressive disorder, single episode, unspecified; Z79.4 Long term (current) use of insulin; Z79.899 Other long term (current) drug therapy; M85.9 Disorder of bone density and structure, unspecified; Z68.34 Body mass index [BMI] 34.0-34.9, adult; E66.01 Morbid (severe) obesity due to excess calories; K21.9 Gastro-esophageal reflux disease without esophagitis; I11.0 Hypertensive heart disease with heart failure; E11.69 Type 2 diabetes mellitus with other specified complication; E78.5 Hyperlipidemia, unspecified; K59.00 Constipation, unspecified; Z82.49 Family history of ischemic heart disease and other diseases of the circulatory system
CPT/HCPCS: 36415; 36569; 71045-TC; 73610-TC; 73620-TC; 73630-TC; 73700-TC; 73721-TC; 80048-TC; 80053-TC; 80061-TC; 80202-TC; 81000-TC; 82306; 82550-TC; 82553-TC; 82570-TC; 82652; 82962-TC; 83735-TC; 83970; 84100-TC; 84155; 84155-TC; 84165; 84300-TC; 84443-TC; 85025-TC; 85730-TC; 87070-TC; 87075-TC; 87081-TC; 89051-TC; A4216; A4217; A4606; A6253; A6402; A6403; A6407; C1751; J0330; J0696; J1815; J2270; J2543; J2704; J3010; J3370; J3490; J7030; J7040; J7050; J7060; Q0163; Z7610

== ENCOUNTER 2017-09-01 13:56 | Inpatient (IN) | payer MEDICARE, OTHER ==
[~2017-09-01] VITALS: Ht 170.2 cm; Wt 118.0 kg
--- NOTE | 2017-09-01 14:00 | NUR ---
NAD NOTED, VSS, RESP EVEN AND UNLABORED, PT WAS PUT ON MONITOR, MD AT BS. SUSAN NOTED, VSS, RESP EVEN AND UNLABORED, PT WAS PUT ON MONITOR, MD AT BS.
--- NOTE | 2017-09-01 14:00 | NUR ---
[id number] FROM HOME: MORE ALTERED (PER FAMILY). BS IN FIELD 261.NAD NOTED, VSS, RESPE EVEN AND UNLABORED. PT AT BS.
--- NOTE | 2017-09-01 14:41 | NUR ---
PT REFUSED RECTAL TEMP, AND STRAIGHT CATH (PROVIDED A URINAL INSTEAD) MADE MD AWARE.
[2017-09-01 14:58] LABS: BASOPHILS # (AUTO) 0.2 /CMM (0.0-0.2); BASOPHILS % (AUTO) 1.7 % (0.0-2.0); EOSINOPHILS % (AUTO) 0.1 % (0.0-6.0); HEMATOCRIT 42 % (39-51); LYMPHOCYTES # (AUTO) 0.6 /CMM (0.8-4.8); LYMPHOCYTES % (AUTO) 5.4 % (20.0-44.0); MEAN CORPUSCULAR HGB CONC 33 g/dl (31.0-36.0); MEAN CORPUSCULAR VOLUME 83 fL (80-96); MONOCYTES # (AUTO) 0.6 /CMM (0.1-1.30); NEUTROPHILS # (AUTO) 10.1 /CMM (1.8-8.9); NEUTROPHILS % (AUTO) 87.8 % (43.0-81.0); PLATELET COUNT (AUTO) 171 /CMM (150-450); RDW COEFFICIENT OF VARIATION 13.6 (11.5-15.0); RED BLOOD CELL COUNT(AUTO) 5.05 MIL/uL (4.5-6.0); WHITE BLOOD COUNT (AUTO) 11.5 K/uL (4.3-11.0)
[2017-09-01] MEDS ORDERED: IV NS 0.9% 1,000 ML BAG IV ONE (15:00)
[2017-09-01 15:06] LABS: CARBON DIOXIDE 26 mmol/L (21-32); CHLORIDE 96 mmol/L (98-107); GLUCOSE 305 mg/dL (74-106); POTASSIUM 4.4 mmol/L (3.5-5.1); SODIUM SERUM 130 mmol/L (136-145); UREA NITROGEN, BLOOD 30 mg/dL (7-18)
[2017-09-01 15:12] LABS: ALANINE AMINOTRANSFERASE 33 U/L (12-78); ALBUMIN 3.3 g/dL (3.4-5.0); ALKALINE PHOSPHATASE 121 U/L (46-116); ASPARTATE AMINOTRANSFERASE 38 U/L (15-37); BILIRUBIN,DIRECT 0.2 mg/dL (0.0-0.2); BILIRUBIN,TOTAL 0.7 mg/dL (0.2-1.0); TOTAL PROTEIN, SERUM 7.8 g/dL (6.4-8.2)
[2017-09-01 15:13] LABS: TROPONIN I 0.236 ng/mL (0.00-0.056)
--- NOTE | 2017-09-01 15:50 | NUR ---
CALLED NURSING RIBBON LAP MACHINE TENDER AND REQUESTED A TELE BED FOR THIS PT.
[2017-09-01] MEDS ORDERED: ASPIRIN 325 MG TABLET ONE (15:57)
[2017-09-01] MEDS ORDERED: ASPIRIN 325 MG TABLET PO ONE (16:00)
[2017-09-01] MEDS ORDERED: PREGABALIN 100 MG CAPSULE PO STA (16:16)
--- NOTE | 2017-09-01 16:20 | NUR ---
ASSIGNED TO TELE #: [id number], DX: RENAL INSUFFICIENCY / [facility], ACCEPTING MD: THADDEUS GARCIA
[2017-09-01] MEDS ORDERED: LISI-603 PO (16:30)
[2017-09-01] MEDS ORDERED: METF-440 PO (16:30)
[2017-09-01] MEDS ORDERED: VANCOMYCIN 1 GM in IV D5W 250 ML IV ONE (16:30)
--- NOTE | 2017-09-01 18:00 | NUR ---
pt admitted from E.R. No s/s of distress ,breathing even and unlabored, able to verbalize needs .no c/o pain . V/S WNL, A/O X3 . Pt. has right foot wound s/p surgery R/T neuropathy .bed in low and locked position. will continue to monitor for changes.
[2017-09-01] MEDS ORDERED: HYDROCODONE/APAP 5/325MG 1 EACH TABLET PO PRN (18:30)
[2017-09-01] MEDS ORDERED: MAGNESIUM HYDROXIDE 30 ML UDC PO PRN (18:30)
[2017-09-01] MEDS ORDERED: Z GUARD REMEDY 2 OZ OINT TP PRN (18:30)
[2017-09-01] MEDS ORDERED: ACETAMINOPHEN 325 MG TABLET PO PRN (18:30)
[2017-09-01] MEDS ORDERED: ONDANSETRON HCL/PF 4 MG/2 ML VIAL IVP PRN (18:30)
[2017-09-01] MEDS ORDERED: ZOLPIDEM TARTRATE 5 MG TABLET PO PRN (18:30)
[2017-09-01] MEDS ORDERED: MAG HYDROX/AL HYDROX/SIMETH 30 ML UDC PO PRN (18:30)
[2017-09-01] MEDS ORDERED: FEE PK DOSING 1 MIN EA MC ONE (18:57)
[2017-09-01] MEDS ORDERED: INSULIN REGULAR, HUMAN 100 UNIT/ML 3 ML VIAL SQ PRN (19:00)
[2017-09-01] MEDS ORDERED: DEXTROSE 50%-WATER 50 ML DISP.SYRIN IV PRN (19:00)
[2017-09-01] MEDS ORDERED: *INSULIN REGULAR(HUMULIN R)HUM 100 UNIT/ML VIAL SQ PRN (19:00)
[2017-09-01 20:00] VITALS: BP 112/61
--- NOTE | 2017-09-01 20:00 | NUR ---
RN NOTE RECEIVED PT RESTING ON BED RESPONSIVE TO TACTILE AND VERBAL STIMULI. AOX 3-4 A LITTLE BIT LETHARGIC. SATING 98% IN RA. NO ACUTE RESP DISTRESS. TELE MONITOR REVEALS SR IV SITE ON LAC G 20 INTACT AND PATENT. AFEBRILE. PT IS BEEN WANTED TO CHECK BLOOD SUGAR MORE OFTEN. OFFLOADED EXT WITH PILLOWS. RIGHT FOOT WOUND WITH DRESSING WITH A LITTLE BIT SEROUS DRAINED FROM THE GAUZED. DRESSING CLEANSED AND CHANGED. CALL LIGHT KEPT WITHIN EASY REACH. WILL CONTINUE TO MONITOR.
[2017-09-01] MEDS: BLOOD SUGAR DIAGNOSTIC 1 EACH STRIP VI SCH (21:30)
[2017-09-01 22:00] VITALS: BP 112/61
[2017-09-01] MEDS ORDERED: SIMVASTATIN 40 MG TABLET PO SCH (22:00)
[2017-09-02] VITALS: BP_SYST 91; BP_SYST 94; BP_DIAS 27; BP_DIAS 29
--- NOTE | 2017-09-02 00:39 | NUR ---
RN NOTES CALLED AND SPOKE TO GERALD REGARDING THE PATIENT REQUEST TO CHECKED HIS BLOOD SUGAR MORE OFTEN AND GIVE MORE INSULIN, PER PATIENT HIS TAKING 40 UNITS OF NOVOLOG AT HOME WHENEVER HE NEEDS IT. EDUCATE PT REGARDING THE MEDICINE VERBALIZED UNDERSTANDING BUT PER PATIETN HIS BLOOD SUGAR IS VERY BRITTLE. PER GENERAL [employer] GERALD [employer] MAKER, NOT TO GIVE MORE AND EDUCATE PT ABOUT THE MEDICINE WHICH I EXPLAINED ALREADY, PT STARTED TO GET UPSET SAYING THAT HIS SON IS A CHARACTER ACTRESS AND HE WILL THREATEN THE HOSPITAL. RE EDUCATE THE PATIENT, AND CALM THE PATIENT DOWN. PER PATIENT HE WILL GO IN THE MORNING WHEN THEY WILL NOT GIVING HIS INSULIN.
[2017-09-02 04:00] VITALS: BP 90/42
[2017-09-02] MEDS ORDERED: VANCOMYCIN 500 MG in IV NS 0.9% 100 ML IV SCH (04:00)
--- NOTE | 2017-09-02 04:10 | NUR ---
RN NOTES CALLED AND SPOKE TO GERALD LOUISE THAT THE PT WANTS HIS LYRICA NOW BECAUSE HIS FOOT IS KILLING HIM, I OFFERED NORCO BUT HE REFUSED TO TAKE IT . INFORMED THAT THE NEXT DOSE OF LYRICA IS GONNA BE AT 9AM BUT HE STARTED TO GET UPSET AND HE SAID HE WILL GO HOME RIGHT NOW IF HE DIDN'T GIVE THE LYRICA NOW. RECEIVED AN ORDER TO FARZAD PROFESSOR OF HISTORICAL THEOLOGY TO GIVE LYRICA NOW INSTEAD OF 9 AM. NOTED AND WILL GIVE THE MEDS ORDERED.
[2017-09-02] MEDS ORDERED: PREGABALIN 100 MG CAPSULE ONE (04:12)
[2017-09-02] MEDS: PREGABALIN 100 MG CAPSULE PO SCH ×3 (04:15→12:45)
[2017-09-02 05:45] VITALS: BP 91/29
[2017-09-02] MEDS: BLOOD SUGAR DIAGNOSTIC 1 EACH STRIP VI SCH (06:04)
--- NOTE | 2017-09-02 06:20 | NUR ---
RN NOTES PT WOKE UP COMPLAINED OF SEVERE PAIN AT SCALE OF 9/10 ON HIS RIGHT FOOT AND INSISTING TO CHECK BLOOD SUGAR AND GIVE INSULIN EARLY. ALL NEEDS ATTENDED LAST BS = 260 MG/DL , 9 UNITS INSULIN PER SLIDING SCALE WAS GIVEN. ALL NEEDS ATTENDED RE EDUCATE PT REGARDING MD'S ORDER. PT IS AWARE AND NOT ACCEPTING WHAT THE MD WANTS. PT WAS THREATENING THAT HE WILL GO HOME TODAY IF MD WILL NOT FOLLOW WHAT HE WANTS. PT REFUSED BLOOD DRAWN WELL. PT IS AOX 3 AWARE ABOUT HIS SITUATION BUT NOT COMPLIANT OF CARE. CALL LIGHT ANSWERED PROMPTLY. ENDORSED CONTINUITY OF CARE TO AM NURSE.
--- NOTE | 2017-09-02 07:00 | NUR ---
RN NOTE RECEIVED PT ON BED, A/Ox3, ON RA , RESPIRATION EVEN AND UNLABORED, NO DISTRESS NOTED, ON TELE HR IN 60'S WITH BBB, R WRIST IV SITE G 22 CDI, OFFLOADED EXT WITH PILLOWS. DRESSING TO RIGHT FOOT CDI, SR UP x3, CALL LIGHT WITHIN EASY REACH. BED LOCKED AND IN LOWEST POSITION, WILL CONTINUE TO MONITOR.
[2017-09-02 08:00] VITALS: BP_SYST 100; BP_SYST 101; BP_DIAS 47; BP_DIAS 80
[2017-09-02 08:53] LABS: BASOPHILS % (AUTO) 0.3 % (0.0-2.0); EOSINOPHILS % (AUTO) 3.7 % (0.0-6.0); HEMATOCRIT 37 % (39-51); HEMOGLOBIN 12.5 g/dL (13.5-17.5); LYMPHOCYTES # (AUTO) 0.8 /CMM (0.8-4.8); LYMPHOCYTES % (AUTO) 12.2 % (20.0-44.0); MEAN CORPUSCULAR HGB CONC 34 g/dl (31.0-36.0); MEAN CORPUSCULAR VOLUME 86 fL (80-96); MONOCYTES # (AUTO) 0.5 /CMM (0.1-1.30); MONOCYTES % (AUTO) 7.5 % (2.0-12.0); NEUTROPHILS # (AUTO) 5.3 /CMM (1.8-8.9); NEUTROPHILS % (AUTO) 76.3 % (43.0-81.0); PLATELET COUNT (AUTO) 131 /CMM (150-450); RDW COEFFICIENT OF VARIATION 14.3 (11.5-15.0); RED BLOOD CELL COUNT(AUTO) 4.32 MIL/uL (4.5-6.0); WHITE BLOOD COUNT (AUTO) 6.9 K/uL (4.3-11.0)
[2017-09-02] MEDS ORDERED: LIOTHYRONINE SODIUM (25 MCG) 25 MCG TABLET PO SCH (09:00)
[2017-09-02] MEDS ORDERED: ASPIRIN 325 MG TABLET PO SCH (09:00)
[2017-09-02] MEDS ORDERED: Medication Not On Formulary EA (Icosapent Ethyl (Vascepa) 2 GM) PO SCH (09:00)
[2017-09-02] MEDS ORDERED: CONTRAVE PO SCH (09:00)
[2017-09-02] MEDS ORDERED: PANTOPRAZOLE 40 MG VIAL IV SCH (09:00)
[2017-09-02] MEDS ORDERED: LISINOPRIL (5MG) 5 MG TABLET PO SCH (09:00)
[2017-09-02 09:24] LABS: CALCIUM, SERUM 8.3 mg/dL (8.5-10.1); CREATININE 2.3 mg/dL (0.6-1.3); MAGNESIUM 1.9 mg/dL (1.8-2.4); PHOSPHORUS 3.4 mg/dL (2.5-4.9); POTASSIUM 3.7 mmol/L (3.5-5.1)
[2017-09-02 09:26] LABS: THYROID STIMULATING HORMONE 1.306 uIU/mL (0.358-3.74)
--- NOTE | 2017-09-02 09:36 | NUR ---
RN NOTES PT REFUSED TO HAVE ECHO DONE THIS AM . EXPLAINED TO PT HOW IMPORTANT IT IS TO FOLLOW THE PLAN OF CARE . HE STILL REFUSED .
[2017-09-02] MEDS ORDERED: INSULIN REGULAR, HUMAN 100 UNIT/ML 3 ML VIAL SQ PRN (10:30)
[2017-09-02] MEDS ORDERED: DEXTROSE 50%-WATER 50 ML DISP.SYRIN IV PRN (10:30)
[2017-09-02] MEDS ORDERED: IV NS 0.9% 1,000 ML IV PRN (10:37)
[2017-09-02] MEDS ORDERED: BLOOD SUGAR DIAGNOSTIC 1 EACH STRIP IN SCH ×2 (11:00→13:00)
--- NOTE | 2017-09-02 11:17 | NUR ---
RN NOTES PT STATED HE WILL BRING HID CONTRAVER FROM HOME .
[2017-09-02 12:00] VITALS: BP 99/67
--- NOTE | 2017-09-02 12:02 | NUR ---
RN NOTES REPORT GIVEN TO PIEDAD VANG FOR BENITEZ.
--- NOTE | 2017-09-02 12:15 | NUR ---
UM NURSE NOTE RECEIVED REPORT FROM NURSE BLEDSOE. PT ON BED, A/Ox4, ON RA , RESPIRATION EVEN AND UNLABORED, NO DISTRESS NOTED, ON TELE HR IN 65 WITH BBB, R WRIST IV SITE G 22 CDI, OFFLOADED EXT WITH PILLOWS. DRESSING TO RIGHT FOOT CDI, SR UP x3, CALL LIGHT WITHIN EASY REACH. BED LOCKED AND IN LOWEST POSITION, WILL CONTINUE TO MONITOR.
--- NOTE | 2017-09-02 15:00 | NUR ---
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
--- NOTE | 2017-09-02 16:15 | NUR ---
HOG MANVETERINARY MILK SPECIALIST NOTES PATIENT LEFT BY AMA.PAPERS SIGNED.MATERIAL CUTTER THADDEUS MADE AWARE.LEFT IN STABLE CONDITION.ALERT ORIENTED X4.NO SOB NO DISTRESS NOTED AT THIS TIME.HE TOLD THAT HE HAS NURSE COMING TO HIS HOME TO TAKE CARE OF HIS R FOOT WOUND.ALL BELONGINGS TAKEN BY THE PATIENT.PICKED UP BY CAREGIVER.
[2017-09-02] MEDS ORDERED: VANCOMYCIN 1.5 GM in IV D5W 500 ML IV SCH (17:00)
[2017-09-02] MEDS ORDERED: INSULIN GLARGINE, 100 UNIT/ML CARTRIDGE SQ SCH (22:00)
== END 2017-09-02 16:18 | disposition left against medical advice (07) | DRG 280 ==
LOC: ER 13:58 → TELE1 17:53
PROVIDERS: ADMIT Hospitalist; ATTEND Hospitalist
DX: I21.4 Non-ST elevation (NSTEMI) myocardial infarction (principal); N17.0 Acute kidney failure with tubular necrosis; L97.919 Non-pressure chronic ulcer of unspecified part of right lower leg with unspecified severity; E87.1 Hypo-osmolality and hyponatremia; E44.0 Moderate protein-calorie malnutrition; I13.0 Hypertensive heart and chronic kidney disease with heart failure and stage 1 through stage 4 chronic kidney disease, or unspecified chronic kidney disease; E87.2 Acidosis; I50.9 Heart failure, unspecified; I11.0 Hypertensive heart disease with heart failure; E11.621 Type 2 diabetes mellitus with foot ulcer; E11.22 Type 2 diabetes mellitus with diabetic chronic kidney disease; E11.42 Type 2 diabetes mellitus with diabetic polyneuropathy; E11.65 Type 2 diabetes mellitus with hyperglycemia; E78.5 Hyperlipidemia, unspecified; M19.079 Primary osteoarthritis, unspecified ankle and foot; K21.9 Gastro-esophageal reflux disease without esophagitis; N18.9 Chronic kidney disease, unspecified; F41.9 Anxiety disorder, unspecified; F32.9 Major depressive disorder, single episode, unspecified; Z79.84 Long term (current) use of oral hypoglycemic drugs; Z79.899 Other long term (current) drug therapy; J44.9 Chronic obstructive pulmonary disease, unspecified; D72.829 Elevated white blood cell count, unspecified; Z79.82 Long term (current) use of aspirin; Z79.4 Long term (current) use of insulin; Z82.49 Family history of ischemic heart disease and other diseases of the circulatory system
CPT/HCPCS: 36415; 70450-TC; 71045-TC; 73630-TC; 80048-TC; 80061-TC; 80076-TC; 82550-TC; 82962-TC; 83605-TC; 83735-TC; 83880; 84100-TC; 84443-TC; 84484-TC; 85025-TC; 87040-TC; 87081-TC; A4606; A6402; C9113; J1815; J3370; J7030; J7060; Z7610